=== PATIENT | female | born 1960 | race Hispanic/Latino ===

== ENCOUNTER 2018-04-16 10:33 | Outpatient (CLI) | payer OTHER ==
--- NOTE | 2018-04-16 13:28 | ULT ---
PELVIC ULTRASOUND INCLUDING TRANSABDOMINAL AND TRANSVAGINAL AND VASCULAR DUPLEX WITH COLOR AND SPECTR AL DOPPLER IMAGING: Date: 04/16/18 HISTORY: 58-year-old female with history of pelvic pain, with concern for the possibility of an ovarian lesion . FINDINGS: The uterus measures 8.7 x 3.8 x 3.6 cm. Endometrium is 0.5 cm. Right ovary measures 1.5 x 2.1 x 2.3 cm, and contains a 1.4 x 1.6 cm small cyst. Left ovary measures 3.1 x 1.8 x 2.7 cm, and contains an approximately 0.9 x 1.4 x 2.8 cm cyst. No evidence for intrauterine mass. No solid extrauterine mass. No abscess or abnormal fluid collectio n. Vascular flow documented to both ovaries. No evidence for ovarian torsion. IMPRESSION: Small bilateral ovarian cysts. No other significant abnormality. POS: [facility]
== END 2018-04-16 10:34 | disposition home or self-care (01) ==
LOC: BICULT 10:33
PROVIDERS: ATTEND Internal Medicine
DX: N83.9 Noninflammatory disorder of ovary, fallopian tube and broad ligament, unspecified (principal); N83.202 Unspecified ovarian cyst, left side; N83.201 Unspecified ovarian cyst, right side
CPT/HCPCS: 76856

== ENCOUNTER 2018-05-06 23:36 | Emergency (ER) | payer OTHER ==
--- NOTE | 2018-05-07 07:50 | RAD ---
TWO VIEWS OF THE CHEST: COMPARISON: 02/25/2016. HISTORY: Cough. FINDINGS: Two views of the chest show normal sized cardiomediastinal silhouette. There is no evidence of consol idation, mass, or pleural effusion. Degenerative changes are seen in the spine. IMPRESSION: No evidence of acute cardiopulmonary disease. POS: [facility]
== END 2018-05-07 00:58 | disposition home or self-care (01) ==
LOC: ERS 23:36
DX: J40 Bronchitis, not specified as acute or chronic (principal); J45.909 Unspecified asthma, uncomplicated; B19.20 Unspecified viral hepatitis C without hepatic coma; I10 Essential (primary) hypertension; E78.00 Pure hypercholesterolemia, unspecified; F41.9 Anxiety disorder, unspecified; F32.9 Major depressive disorder, single episode, unspecified; Z79.899 Other long term (current) drug therapy
CPT/HCPCS: 71046; 93005; 94640; J7620

== ENCOUNTER 2018-11-17 12:36 | Emergency (ER) | payer SELFPAY ==
[2018-11-17] MEDS ORDERED: Ondansetron ODT 4 MG TAB ONE (13:24)
[2018-11-17 13:36] LABS: #Lymphocytes 1.2 thou/uL (1.20-3.40); #Monocytes 0.4 thou/uL (0.11-0.59); #Neutrophils 8.2 thou/uL (1.40-6.50); %Basophils 0.2 % (0.0-1.0); %Eosinophils 0.3 % (0.0-10.0); %Lymphocytes 11.7 % (21.0-51.0); %Monocytes 4.2 % (0.0-10.0); %Neutrophils 83.6 % (42.0-75.0); Hemoglobin 15.5 g/dL (12.0-16.0); Mean Corpuscular HGB CONC 34.4 g/dL (32.0-36.0); Mean Corpuscular Hemoglobin 31.6 pg (27.0-31.0); Mean Corpuscular Volume 91.9 fL (78.0-98.0); Mean Platelet Volume 8.5 fL (7.4-10.4); Platelet Count 238 thou/uL (130-400); RBC Distribution Width 11.5 % (11.5-14.5); White Blood Cell (WBC) Count 9.8 thou/uL (4.8-10.8)
[2018-11-17 14:07] LABS: ALT (SGPT) 14 U/L (8-55); AST (SGOT) 26 U/L (5-34); Albumin 4.2 g/dL (3.5-5.0); Alkaline Phosphatase 184 U/L (40-150); Anion Gap 13 mmol/L (10-20); BUN (Urea Nitrogen) 13 mg/dL (9.8-20.1); Calc. Creatinine Clearance 0 mL/min (70-130); Calcium 9.3 mg/dL (7.8-10.44); Carbon Dioxide 27 mmol/L (22-29); Chloride 102 mmol/L (98-107); Estimated GFR-MDRD 88; Globulin 2.8 g/dL (2.4-3.5); Glucose 115 mg/dL (70-105); Lipase 6 U/L (8-78); Potassium 3.9 mmol/L (3.5-5.1); Sodium 138 mmol/L (136-145)
[2018-11-17 14:53] LABS: Bilirubin Small (Negative); Blood, Urine Moderate (Negative); Clarity CLOUDY (Clear); Glucose, Urine (Dipstick) Negative (Negative); Leukocyte Moderate (Negative); Nitrite Negative (Negative); Protein, Urine (Dipstick) 30 mg/dL (Neg-Trace); Specific Gravity, Urine 1.028 (1.002-1.036)
[2018-11-17 14:55] LABS: Pathc Cast-AUWi Flag 0.13 (0-2.49)
[2018-11-17 14:59] LABS: Bacteria/HPF 1+ HPF (None Seen); Squamous Epithelial 0-3 HPF (0-3)
[2018-11-17 15:00] LABS: Hyaline Casts/LPF NONE SEEN LPF (0-3 Hyaline)
[2018-11-17] MEDS ORDERED: Acetaminophen 500 MG TAB ONE (16:18)
== END 2018-11-17 16:42 | disposition home or self-care (01) ==
LOC: ERS 12:36
DX: R11.2 Nausea with vomiting, unspecified (principal); R10.10 Upper abdominal pain, unspecified; R19.7 Diarrhea, unspecified; N39.0 Urinary tract infection, site not specified; E11.9 Type 2 diabetes mellitus without complications; J45.909 Unspecified asthma, uncomplicated; E78.00 Pure hypercholesterolemia, unspecified; I10 Essential (primary) hypertension; F41.9 Anxiety disorder, unspecified; F32.9 Major depressive disorder, single episode, unspecified; Z79.899 Other long term (current) drug therapy; Z79.84 Long term (current) use of oral hypoglycemic drugs
CPT/HCPCS: 36415; 36416; 80053; 81003; 81015; 83690; 84484; 85025; 96360; Q0162

== ENCOUNTER 2018-12-10 18:00 | Emergency (ER) | payer SELFPAY ==
[2018-12-10 18:32] LABS: #Basophils 0.1 thou/uL (0.0-0.2); #Eosinphils 0.1 thou/uL (0.0-0.7); #Lymphocytes 3.3 thou/uL (1.20-3.40); #Monocytes 0.6 thou/uL (0.11-0.59); #Neutrophils 5.5 thou/uL (1.40-6.50); %Basophils 0.9 % (0.0-1.0); %Eosinophils 0.9 % (0.0-10.0); %Lymphocytes 34.6 % (21.0-51.0); %Monocytes 6.3 % (0.0-10.0); %Neutrophils 57.3 % (42.0-75.0); Hemoglobin 14.3 g/dL (12.0-16.0); Mean Corpuscular HGB CONC 34.7 g/dL (32.0-36.0); Mean Platelet Volume 7.9 fL (7.4-10.4); Platelet Count 242 thou/uL (130-400); RBC Distribution Width 11.4 % (11.5-14.5); Red Blood Cell (RBC) Count 4.47 mill/uL (4.20-5.40); White Blood Cell (WBC) Count 9.6 thou/uL (4.8-10.8)
[2018-12-10] MEDS ORDERED: Metoclopramide HCl 10 MG/2 ML VIAL ONE (18:48)
[2018-12-10] MEDS ORDERED: diphenhydrAMINE 50 MG/ML VIAL ONE (18:48)
[2018-12-10] MEDS ORDERED: Fentanyl 100 MCG/2 ML VIAL ONE (18:48)
--- NOTE | 2018-12-10 18:51 | RAD ---
RADIOGRAPH CHEST 1 VIEW: DATE: 12/10/2018 HISTORY: 58-year-old female with dyspnea FINDINGS: There are no airspace densities, pulmonary edema, pneumothorax, or cardiomegaly. The lateral costophr enic angles are sharp. IMPRESSION: No acute cardiopulmonary findings.
[2018-12-10 19:00] LABS: ALT (SGPT) 16 U/L (8-55); AST (SGOT) 28 U/L (5-34); Albumin 4.1 g/dL (3.5-5.0); Alkaline Phosphatase 183 U/L (40-150); Anion Gap 13 mmol/L (10-20); BUN (Urea Nitrogen) 11 mg/dL (9.8-20.1); Bilirubin, Total 0.5 mg/dL (0.2-1.2); CK (CPK) 32 U/L (29-168); Calc. Creatinine Clearance 0 mL/min (70-130); Calcium 9.7 mg/dL (7.8-10.44); Carbon Dioxide 29 mmol/L (22-29); Chloride 101 mmol/L (98-107); Estimated GFR-MDRD 88; Glucose 106 mg/dL (70-105); Lipase 18 U/L (8-78); Protein, Total 7.1 g/dL (6.0-8.3); Sodium 139 mmol/L (136-145)
[2018-12-10 19:41] LABS: Bilirubin Negative (Negative); Blood, Urine Negative (Negative); Clarity Clear (Clear); Glucose, Urine (Dipstick) Normal (Negative); Leukocyte Negative Leu/uL (Negative); Nitrite Negative (Negative); Protein, Urine (Dipstick) Negative (Neg-Trace); Urobilinogen 3 mg/dL (Less than 2)
--- NOTE | 2018-12-10 19:57 | CT ---
CT ABDOMEN WITH CONTRAST CT PELVIS WITH CONTRAST: DATE: 12/10/2018 HISTORY: 58-year-old female with generalized abdominal pain, most severe in the right upper quadrant with naus ea and subjective fever. COMPARISON: 02/16/2015. TECHNIQUE: IV injection of iodinated contrast media: Administered Oral contrast media:Not administered. FINDINGS: Liver: No focal solid mass. Spleen: No splenomegaly.. Pancreas: No mass or surrounding fat stranding.. Adrenals: No mass.. Kidneys: No hydronephrosis or enhancement abnormalities.. Large 9.5 x 7.5 x 7.5 cm right renal cyst e xophytically protruding inferiorly from lower pole has increased in size. Ureters: No dilation. Bladder: No pathology identified. Abdominal aorta: No aneurysm. Small bowel: No dilation. Colon: No adjacent fat stranding. Appendix: No dilation or adjacent fat stranding.. Free air: None. Free fluid: None. Fat containing paraumbilical hernia has increased in size. IMPRESSION: 1. No major pathology identified.. 2. Large right renal cyst. 3. Fat-containing paraumbilical hernia.
== END 2018-12-10 20:23 | disposition home or self-care (01) ==
LOC: ERS 18:00
DX: E11.43 Type 2 diabetes mellitus with diabetic autonomic (poly)neuropathy (principal); K31.84 Gastroparesis; N28.1 Cyst of kidney, acquired; F32.9 Major depressive disorder, single episode, unspecified; F41.9 Anxiety disorder, unspecified; E78.5 Hyperlipidemia, unspecified; J44.9 Chronic obstructive pulmonary disease, unspecified; I10 Essential (primary) hypertension; Z86.19 Personal history of other infectious and parasitic diseases; Z79.84 Long term (current) use of oral hypoglycemic drugs; Z79.899 Other long term (current) drug therapy
CPT/HCPCS: 36415; 71045; 74177; 80053; 81003; 82550; 83690; 84484; 85025; 96365; 96375; J1200; J2765; J3010

== ENCOUNTER 2019-02-17 20:14 | Emergency (ER) | payer SELFPAY ==
[2019-02-17] MEDS ORDERED: Albuterol Sulfate 2.5 mg/3 ml Neb ONE (20:32)
[2019-02-17] MEDS ORDERED: predniSONE 20 MG TAB ONE (20:52)
== END 2019-02-17 21:17 | disposition home or self-care (01) ==
LOC: ERS 20:14
DX: J45.901 Unspecified asthma with (acute) exacerbation (principal); E11.9 Type 2 diabetes mellitus without complications; I10 Essential (primary) hypertension; E78.00 Pure hypercholesterolemia, unspecified; F41.9 Anxiety disorder, unspecified; F32.9 Major depressive disorder, single episode, unspecified; Z79.899 Other long term (current) drug therapy
CPT/HCPCS: 94640; J7512; J7611; J7620

== ENCOUNTER 2019-06-28 22:01 | Observation (INO) | payer SELFPAY ==
[2019-06-28 22:34] LABS: #Basophils 0.1 thou/uL (0.0-0.2); #Eosinphils 0.1 thou/uL (0.0-0.7); #Lymphocytes 4.5 thou/uL (1.20-3.40); #Monocytes 0.7 thou/uL (0.11-0.59); #Neutrophils 6.3 thou/uL (1.40-6.50); %Basophils 0.9 % (0.0-1.0); %Eosinophils 0.6 % (0.0-10.0); %Lymphocytes 38.7 % (21.0-51.0); %Monocytes 5.7 % (0.0-10.0); %Neutrophils 54.1 % (42.0-75.0); Hemoglobin 15.7 g/dL (12.0-16.0); Mean Corpuscular HGB CONC 34.5 g/dL (32.0-36.0); Mean Corpuscular Hemoglobin 31.1 pg (27.0-31.0); Mean Corpuscular Volume 90.1 fL (78.0-98.0); Mean Platelet Volume 8.7 fL (7.4-10.4); Platelet Count 222 thou/uL (130-400); RBC Distribution Width 11.4 % (11.5-14.5); Red Blood Cell (RBC) Count 5.04 mill/uL (4.20-5.40); White Blood Cell (WBC) Count 11.6 thou/uL (4.8-10.8)
[2019-06-28 22:43] LABS: ALT (SGPT) 9 U/L (8-55); AST (SGOT) 18 U/L (5-34); Albumin 4.1 g/dL (3.4-4.8); Alkaline Phosphatase 198 U/L (40-110); Anion Gap 14 mmol/L (10-20); BUN (Urea Nitrogen) 11 mg/dL (9.8-20.1); Bilirubin, Total 0.3 mg/dL (0.2-1.2); CK (CPK) 39 U/L (29-168); Calc. Creatinine Clearance 0 mL/min (70-130); Calcium 9.4 mg/dL (7.8-10.44); Carbon Dioxide 24 mmol/L (23-31); Chloride 105 mmol/L (98-107); Estimated GFR-MDRD 82; Globulin 3.9 g/dL (2.4-3.5); Glucose 119 mg/dL (80-115); Sodium 139 mmol/L (136-145)
--- NOTE | 2019-06-28 23:20 | RAD ---
Exam: Chest one view HISTORY:Chest pain. Palpitations. Comparison: 12/10/2018 FINDINGS: Cardiac silhouette: Normal Aorta: Unremarkable Pulmonary vessels: Normal Costophrenic angles: Clear LUNGS: No masses or consolidation. Pneumothorax: None Osseous abnormalities: None IMPRESSION: No acute cardiopulmonary process.
[2019-06-29] MEDS ORDERED: Acetaminophen 650 MG Suppository PR PRN (00:50)
[2019-06-29] MEDS ORDERED: HumaLOG 300 UNITS/3 ML VIAL SC PRN ×2 (00:55)
[2019-06-29] MEDS ORDERED: Dextrose 50% Abboject 50 ML SYRINGE SLOW IVP PRN (00:55)
[2019-06-29] MEDS ORDERED: Dextrose 5% in Water 1,000 ML IV PRN (00:55)
[2019-06-29 01:52] VITALS: BMI 40.9
--- NOTE | 2019-06-29 02:36 | HP ---
This is GIORGIO Dover dictating a report for Ronaldo Hughes MD. CHIEF COMPLAINT: Intermittent palpitations. HISTORY OF PRESENT ILLNESS: Ms. Hillman is a very pleasant 59-year-old woman with a known history of diabetes mellitus, COPD, hypertension, and hyperlipidemia, also known to have a history of arrhythmia in the past, who presents today with recurring episodes of palpitations. The patient states for the last several weeks, she has noted occasional episodes of palpitations lasting a few seconds and resolving on its own. Today since 6:00 p.m., the patient states it has remained intermittent, again lasting a few seconds at a time, but feeling as if it takes away her breath. She denies any associated chest pain. Reports mild nausea after taking aspirin at home. Denies any recent fevers, chills, or sweats. Denies any cough or hemoptysis. Has felt well in herself in recent days. The patient does report noting lower extremity swelling and more prominent in recent days. Denies any recent flights or long car rides. ED COURSE: In the emergency department, she had an EKG done that showed normal sinus rhythm with heart rate of 77. Her heart rate, however, in the 80 has gone as high as 140s for a very brief period. She has had blood pressure elevated at 215/122 on initial presentation, but it has improved to 156/78. She had laboratory studies done showing a mildly elevated white count of 11.6, hemoglobin 15.7, hematocrit 45.4, platelets . Sodium 139, potassium 4.0, BUN 11, creatinine 0.72, GFR 82, glucose 119, calcium 9.4. LFTs unremarkable. Alkaline phosphatase 198. Troponin 0.021. CK 39. Albumin 4.1. IMAGING DATA: Chest x-ray imaging showed no acute cardiopulmonary process. PAST MEDICAL HISTORY: 1. Type 2 diabetes mellitus. 2. COPD. 3. Hepatitis C. 4. Umbilical hernia. 5. Renal cyst. 6. Hypertension. 7. Hyperlipidemia. 8. Anxiety. 9. Depression. PAST SURGICAL HISTORY: 1. Tubal ligation. 2. Gallbladder. 3. Appendectomy. 4. Ovarian cyst removal. SOCIAL HISTORY: The patient reports drinking alcohol rarely. Denies any history of tobacco use. No drug use. She lives at home with her family. She does report drinking excess caffeine including three cups of coffee daily and 420-ounce bottles of Dr Pepper or Coke daily. PHYSICAL EXAMINATION: GENERAL: The patient appears well developed, well nourished, is in no acute distress. She is sitting comfortably on the stretcher. VITAL SIGNS: Blood pressure 156/78, pulse 70, respirations 18, temp 98.2, sats 97% on room air. While obtaining history, the patient's heart rate did intermittently increase to the 140s range for a few seconds. HEENT: Normocephalic and atraumatic. Pupils are equal, round, and reactive to light. Sclerae icterus. Oropharynx is clear. NECK: Supple. LUNGS: Clear to auscultation bilaterally without wheezes, rales, or rhonchi. CARDIAC: Regular rate and rhythm without audible murmurs, rubs, or gallops. ABDOMEN: Soft, nontender, and nondistended. Obese. No guarding or rigidity. EXTREMITIES: No calf tenderness. No obvious lower extremity swelling. No edema. NEUROLOGIC: Alert and oriented x3. SKIN: Warm and dry. INVESTIGATIONS: As mentioned above in the HPI. IMPRESSION AND PLAN: Ms. Hillman is a pleasant 59-year-old woman, who is being admitted for management of the following. 1. Nonsustained supraventricular tachycardia. The patient with brief shortness of breath when the episode starts. Otherwise, denies any chest pain or difficulty breathing. Her heart rate is within normal range. She has noted lower extremity swelling, but otherwise no other associated symptoms. We will obtain a D-dimer. We will check TSH and continue to trend troponins. The patient will remain on continuous cardiac monitoring. Consultation placed to Cardiology as per discussion with Dr. Hughes. We will check magnesium as well. White count slightly elevated, but no clear signs or symptoms of infection. We will obtain urinalysis and urine culture. Chest x-ray unremarkable. 2. Diabetes mellitus. Resume home medications. Monitor blood glucose and initiate sliding scale. 3. Hypertension. Resume home medications and monitor blood pressure. 4. Anxiety. Resume home medications once verified. 5. Chronic obstructive pulmonary disease. Resume home medications once verified. DuoNeb p.r.n. 6. Gastrointestinal prophylaxis with famotidine. 7. Code status is full. Surrogate decision maker is her , Solo Rafy. The patient's case discussed with attending, who agrees upon care as described above. Job ID: [id number]
[2019-06-29 04:24] LABS: #Eosinphils 0.1 thou/uL (0.0-0.7); #Lymphocytes 3.7 thou/uL (1.20-3.40); #Monocytes 0.5 thou/uL (0.11-0.59); #Neutrophils 5.3 thou/uL (1.40-6.50); %Basophils 0.4 % (0.0-1.0); %Eosinophils 0.8 % (0.0-10.0); %Lymphocytes 38.4 % (21.0-51.0); %Neutrophils 55.3 % (42.0-75.0); Hemoglobin 14.3 g/dL (12.0-16.0); Mean Corpuscular HGB CONC 34.6 g/dL (32.0-36.0); Mean Corpuscular Hemoglobin 31.7 pg (27.0-31.0); Mean Corpuscular Volume 91.5 fL (78.0-98.0); Mean Platelet Volume 8.5 fL (7.4-10.4); Platelet Count 215 thou/uL (130-400); RBC Distribution Width 11.5 % (11.5-14.5); Red Blood Cell (RBC) Count 4.51 mill/uL (4.20-5.40); White Blood Cell (WBC) Count 9.6 thou/uL (4.8-10.8)
[2019-06-29 04:45] LABS: Anion Gap 12 mmol/L (10-20); BUN (Urea Nitrogen) 10 mg/dL (9.8-20.1); Calc. Creatinine Clearance 139 mL/min (70-130); Calcium 8.7 mg/dL (7.8-10.44); Carbon Dioxide 25 mmol/L (23-31); Chloride 107 mmol/L (98-107); Estimated GFR-MDRD 88; Glucose 119 mg/dL (80-115); Potassium 4.4 mmol/L (3.5-5.1); Sodium 140 mmol/L (136-145)
--- NOTE | 2019-06-29 08:01 | CT ---
PRELIMINARY REPORT/[facility]/EMERGENCY AFTER HOURS PROCEDURE: EXAM: CTA Chest with Intravenous Contrast CLINICAL HISTORY: F59, TACHY, ELEVATED D-DIMER. EVAL FOR PE. TECHNIQUE: Axial CTA images of the chest with intravenous contrast. MIP reconstructed images were created and re viewed. CONTRAST: With; 100ML ISOVUE 370 COMPARISON: None provided. FINDINGS: PULMONARY ARTERIES There is no intraluminal filling defect suspicious for PE. AORTA No thoracic aortic aneurysm or dissection. LUNGS The lungs are clear. No pulmonary mass. No focal airspace consolidation. PLEURAL SPACES No pleural effusion. No pneumothorax. HEART AND MEDIASTINUM No cardiomegaly. No significant pericardial effusion. LYMPH NODES No lymphadenopathy. BONES No focal osseous abnormality or acute fracture. Multilevel degenerative changes of the spine. CHEST WALL AND UPPER ABDOMEN Images through the upper abdomen are unremarkable. Status post cholecystectomy. The chest wall is u nremarkable. IMPRESSION: Unremarkable CTA of the chest. ELECTRONICALLY SIGNED BY: Félix Gonzales M.D. Jun 29, 2019 2:45:01 AM RIB CLOTH KNITTER This report is intended for review by the ordering physician only, in accordance of law. If you recei ve this report in error, please call [facility] at [phone]. FINAL REPORT EMERGENT AFTER HOURS CT ANGIOGRAM THORAX WITH IV CONTRAST AND 3D RECONSTRUCTIONS: HISTORY: Tachycardia and positive D-dimer. COMPARISON: 04/22/2013. IMPRESSION: 1. No CT evidence of a pulmonary embolus. 2. Thoracic aorta is normal in caliber without evidence of an aortic dissection. 3. Degenerative change in the spine with calcification anterior longitudinal ligament. 4. Findings are in agreement with the preliminary report by [facility]. POS: [facility]
--- NOTE | 2019-06-29 08:03 | ULT ---
PRELIMINARY REPORT/[facility]/EMERGENCY AFTER HOURS PROCEDURE: EXAM: US Duplex bilateral Lower Extremity Veins. CLINICAL HISTORY: BLE pain/edema Negative for BLE DVT TECHNIQUE: Real-time ultrasound scan of the veins of the bilateral lower extremity with color Doppler flow, spec tral waveform analysis and compression. COMPARISON: None provided. FINDINGS: DEEP VEINS: The common femoral, femoral, and popliteal veins are echolucent and compressible. These v essels demonstrate respiratory variation and augmentation. There is normal color Doppler flow through out. The visualized calf veins are also patent. SUPERFICIAL VEINS: The visualized greater saphenous vein is patent. SOFT TISSUES: No popliteal fossa cyst or other abnormalities. IMPRESSION: No deep venous thrombosis in the bilateral lower extremity. ELECTRONICALLY SIGNED BY: Donis Adhikari MD Jun 29, 2019 3:03:52 AM LOG BRANDER This report is intended for review by the ordering physician only, in accordance of law. If you recei ve this report in error, please call [facility] at [phone]. FINAL REPORT VENOUS DUPLEX SONOGRAM BILATERAL LOWER EXTREMITY: HISTORY: Bilateral leg pain and edema. FINDINGS: Agree with the preliminary report by Dr. Adhikari from [facility]. Normal exam. Good color and s pectral Doppler flow. POS: [facility]
[2019-06-29] MEDS: Famotidine 20 MG TAB PO SCH ×2 (08:36→20:05)
[2019-06-29] MEDS ORDERED: FLU VACC QS2019-20(6MOS UP)/PF 60 MCG/0.5 ML SYRINGE IM ONE (09:00)
[2019-06-29 09:08] LABS: Bilirubin Negative (Negative); Blood, Urine 1+ (Negative); Clarity Clear (Clear); Glucose, Urine (Dipstick) Normal (Negative); Leukocyte 75 Leu/uL (Negative); Nitrite Negative (Negative); Protein, Urine (Dipstick) 20 mg/dL (Neg-Trace); Squamous Epithelial 0-3 HPF (0-3); Urobilinogen Normal mg/dL (Less than 2)
[2019-06-29 09:09] LABS: Bacteria/HPF 1+ HPF (None Seen)
[2019-06-29 09:11] LABS: Urine Culture Reflex Yes Yes
[2019-06-29] MEDS ORDERED: Lisinopril 20 MG TAB PO SCH (09:15)
[2019-06-29] MEDS ORDERED: Hydrochlorothiazide 25 MG TAB PO SCH (09:15)
[2019-06-29] MEDS ORDERED: Iopamidol 370 76% 100 ML VIAL ONE (15:07)
[2019-06-29] MEDS: Acetaminophen 325 MG TAB PO PRN ×2 (15:29→20:05)
--- NOTE | 2019-06-29 16:56 | PDOC.HOSPP ---
- Subjective Encounter Date: 06/29/19 Encounter Time: 16:50 Subjective: f/u for palpitation and intermittent tachycardia not currently on any rate control agent. - Objective Vital Signs & Weight: Vital Signs (12 hours) Temp Pulse Resp BP BP Pulse Ox 06/29/19 11:23 97.8 F 65 16 138/65 98 06/29/19 07:42 97.5 F L 62 16 181/83 H 96 Weight Weight 224 lb I&O: 06/28/19 06/29/19 06/30/19 06:59 06:59 06:59 Output Total 200 Balance -200 Result Diagrams: 06/29/19 04:00 06/29/19 04:00 Additional Labs: Accuchecks 06/29/19 06/29/19 10:55 05:31 POC Glucose 157 H 124 H Laboratory Tests 06/28/19 06/28/19 06/29/19 22:09 22:09 01:01 WBC 11.6 H Troponin I 0.021 B-Natriuretic Peptide Less than 10.0 TSH 3rd Generation 06/29/19 06/29/19 06/29/19 01:01 01:01 04:00 WBC Troponin I 0.017 0.012 B-Natriuretic Peptide TSH 3rd Generation 2.3844 Radiology Reviewed by me: Yes (CTA chest - neg; LE dopplers - neg) EKG Reviewed by me: Yes (Tele - SR) Hospitalist ROS - Medication Medications: Active Medications Generic Name Dose Route Start Last Admin Trade Name Freq PRN Reason Stop Dose Admin Acetaminophen 650 mg 06/29/19 00:50 06/29/19 15:29 Tylenol PO 650 mg Q4H PRN Administration Headache/Fever/Mild Pain (1-3) Famotidine 20 mg 06/29/19 09:00 06/29/19 08:36 Pepcid PO 20 mg BID COLE Administration - Exam General Appearance: NAD, awake alert Eye: PERRL, anicteric sclera ENT: normocephalic atraumatic, no oropharyngeal lesions Neck: supple, symmetric, no JVD, no thyromegaly Heart: RRR, no gallops, no rubs, normal peripheral pulses Respiratory: CTAB, no wheezes, no rales, no ronchi, normal chest expansion, no tachypnea Gastrointestinal: soft, non-tender, non-distended, normal bowel sounds, no palpable masses Extremities: no cyanosis, no clubbing, no edema Skin: normal turgor, no lesions Neurological: cranial nerve grossly intact, no new deficit Musculoskeletal: normal tone, normal strength Psychiatric: normal affect, A&O x 3 Hosp A/P (1) Arrhythmia Code(s): I49.9 - CARDIAC ARRHYTHMIA, UNSPECIFIED Status: Acute Plan: ? type, may benefit from event monitor, consider B-spenser trial, Echo pending (2) Dyspnea Code(s): R06.00 - DYSPNEA, UNSPECIFIED Status: Acute Plan: Intermittent, check 2D echo, no pulmonary edema (3) Diabetes mellitus type II, uncontrolled Code(s): E11.65 - TYPE 2 DIABETES MELLITUS WITH HYPERGLYCEMIA Status: Chronic Plan: Confirm home regimen, dietary measures (4) Hypertension, benign Code(s): I10 - ESSENTIAL (PRIMARY) HYPERTENSION Status: Chronic Plan: Trial Metoprolol 12.5mg BID - Plan out of bed/ambulate, DVT proph w/SCDs Stable currently Consider Event monitor for outpt if sx return Trial Metroprolol 12.5mg BID OOB and ambulate 2D echo pending Likely home in 24h
[2019-06-29] MEDS: Metoprolol Tartrate 25 MG TAB PO SCH (20:04)
[2019-06-30] MEDS: Famotidine 20 MG TAB PO SCH (08:49)
[2019-06-30] MEDS: Metoprolol Tartrate 25 MG TAB PO SCH (08:49)
[2019-06-30 09:00] VITALS: BP 135/72
[2019-06-30] MEDS ORDERED: Lisinopril 20 MG TAB PO SCH (09:00)
[2019-06-30] MEDS ORDERED: Hydrochlorothiazide 25 MG TAB PO SCH (09:00)
[2019-06-30 09:15] VITALS: TEMP 98.3
[2019-06-30 10:08] LABS: Cardiac Risk 4.5 (Less than 4.5)
--- NOTE | 2019-06-30 10:51 | CON ---
DATE OF CONSULTATION: HISTORY: Jd Hillman is a 59-year-old female who was admitted with palpitations. I evaluated her in the office in January 2016 when she was seen for pleuritic chest pain at rest or with exertion that would last 1 to 2 minutes. Echocardiogram revealed ejection fraction of 55% to 60% with mild mitral tricuspid and pulmonic regurgitation. She also underwent Lexiscan Cardiolite testing, which was normal. Since her 30s, she states that she has had episodes of palpitations, although they have been much worse over the last several weeks. She will feel her heart beating very rapidly and it may last up to 5 to 10 minutes. She denies any chest discomfort, may feel somewhat short of breath with this. She denies any history of syncope. When she arrived, her blood pressure was 215/122, and she was in sinus rhythm. Since being on telemetry, she has had episodes of supraventricular tachycardia with rates of approximately 150 per minute. She has been started on low-dose metoprolol and has not had any recurrence since that time. PAST MEDICAL HISTORY: Diabetes, COPD, hepatitis C, umbilical hernia, hypertension, hyperlipidemia (she was on pravastatin 20 at bedtime with good control of her cholesterol, but has lost her insurance and does not have any prescriptions to have that filled), anxiety and depression. OPERATIONS: Tubal ligation, cholecystectomy, appendectomy, ovarian cyst removal. MEDICATIONS: Lisinopril/hydrochlorothiazide 20/12.5 q.a.m. ALLERGIES: NONE. SOCIAL HISTORY: She rarely drinks. She does not smoke. She denied caffeine use to me, but to the admitting physician stated that she would drink 3 cups of coffee a day and 42-ounce bottles of Dr Pepper or Coke daily. REVIEW OF SYSTEMS: A 12-point review of systems is otherwise unremarkable. PHYSICAL EXAMINATION: VITAL SIGNS: Blood pressure 113/58, pulse of 59. HEENT: PERRL. NECK: Supple. CHEST: Clear. CARDIAC: S1 and S2 normal without any S3, S4, or murmurs. ABDOMEN: Obese. Normal bowel sounds. No tenderness or organomegaly. EXTREMITIES: Revealed no clubbing, cyanosis, or edema. NEUROLOGIC: Grossly intact. SKIN: Warm and dry. LABORATORY DATA: EKG revealed normal sinus rhythm with nonspecific ST changes. Cardiac enzymes are unremarkable. Hemoglobin 14.3, hematocrit 41.3, white count 9600, platelets 215,000. D-dimer 2.07. Glucose is up to 157. Sodium 140, potassium 4.4, chloride 107, carbon dioxide 25, BUN 10, and creatinine 0.68. IMPRESSION: 1. Supraventricular tachycardia, probably with onset in her 30s. 2. High caffeine intake. 3. Hypertension, poorly controlled at times. 4. Hypercholesterolemia, on no medications. 5. Diabetes. 6. History of asthma. 7. Obesity. 8. Hepatitis C. PLAN: Since institution of therapy with low-dose metoprolol, she has not had any recurrence of her SVT. We did discuss the benign nature of her arrhythmia. From her blood pressure presentation, she needed to be on additional medications and if beta-spenser will control her arrhythmia, then that is probably all we need to do at the present time. However, she continues to have breakthrough episodes, a consideration can be given to radiofrequency ablation. I feel that she can be discharged and would also start her on pravastatin 20 at bedtime, which she was taking in the past for her hypercholesterolemia. Fasting lipid profile has been ordered. Again, we discussed vagal maneuvers to try to terminate the arrhythmias, she does have recurrence. Job ID: [id number]
--- NOTE | 2019-06-30 12:38 | DIS ---
DATE OF ADMISSION: 06/28/2019 DATE OF DISCHARGE: 06/30/2019 DISCHARGE DIAGNOSES: 1. Arrhythmia, nonspecific. 2. Dyspnea secondary to #1. 3. Diabetes mellitus type 2, poorly controlled. 4. Hypertension, stable. CONSULTATIONS: Dr. Jack Ferreira with Cardiology Service. PERTINENT LABORATORY AND X-RAY FINDINGS: Basic metabolic profile within normal limits. Magnesium level 2.2. Troponin-I negative x3. BNP less than 10. TSH 2.38. Total cholesterol 159, triglycerides 165, HDL 35, LDL 91. CBC showed a white blood cell count ranged between 9.6 to 11.6. Urine culture dated on 06/29/2019 showed young culture with further incubation required. Portable chest x-ray dated on 06/28/2019 showed no acute cardiopulmonary process. CT angiogram of the chest dated on 06/29/2019 showed no evidence for pulmonary embolus. 2D transthoracic echocardiogram dated on 06/29/2019 showed ejection fraction of 50% to 55%. Diastolic dysfunction noted. Mild mitral and tricuspid valve regurgitation. HOSPITAL COURSE: The patient was initially observed on the telemetry unit after presenting with palpitations. The patient underwent general metabolic screening showing essentially negative findings. TSH and magnesium levels were normal. Troponin-I negative x3. Telemetry monitoring showed no acute arrhythmia or dysrhythmia and the patient was given a trial of metoprolol 12.5 mg b.i.d. 2D transthoracic echocardiogram was performed showing preserved ejection fraction without focal wall motion abnormalities. Cardiology consult recommendations included continuation of a beta-spenser therapy and followup on an outpatient basis. The patient was also noted with poorly-controlled diabetes mellitus type 2 with recommendations for outpatient followup and management by her primary care provider. Overall, the patient remained clinically stable with stable vital signs at the time of discharge. I have examined the patient at the time of discharge and discussed followup instructions. The patient verbalizes understanding and agreement, ready for discharge on 06/30/2019. DISCHARGE MEDICATIONS: 1. Lisinopril/hydrochlorothiazide 20/12.5 mg 1 tablet p.o. daily. 2. Lopressor 12.5 mg p.o. b.i.d. 3. Zocor 10 mg p.o. at bedtime. FOLLOWUP: The patient may follow up with her primary care provider, Dr. Vandana Nguyen. The patient will follow up with Dr. Mj Ferreira and to call his office for appointment time and date. CONDITION ON DISCHARGE: Stable. ACTIVITY: Ad-britni. DIET: Heart healthy and ADA. CODE STATUS: Full. DISPOSITION: Home on 06/30/2019. Job ID: [id number]
[2019-06-30] MEDS ORDERED: Pravastatin Sodium 20 MG TAB PO SCH (21:00)
[2019-06-30] MEDS ORDERED: Simvastatin 5 MG TAB PO SCH (21:00)
== END 2019-06-30 12:52 | disposition home or self-care (01) ==
LOC: ERS 22:01 → 2NO 23:58
PROVIDERS: ADMIT Internal Medicine; ATTEND Internal Medicine
DX: I47.1 Supraventricular tachycardia (principal); E11.9 Type 2 diabetes mellitus without complications; I10 Essential (primary) hypertension; E66.9 Obesity, unspecified; E78.00 Pure hypercholesterolemia, unspecified; B19.20 Unspecified viral hepatitis C without hepatic coma; J44.9 Chronic obstructive pulmonary disease, unspecified; E78.5 Hyperlipidemia, unspecified; Z79.899 Other long term (current) drug therapy; F41.9 Anxiety disorder, unspecified; F32.9 Major depressive disorder, single episode, unspecified; Z68.41 Body mass index [BMI] 40.0-44.9, adult
CPT/HCPCS: 36415; 36416; 71045; 71275; 80048; 80053; 80061; 81001; 82550; 83735; 83880; 84443; 84484; 85025; 85379; 87086; 90471; 90686; 90732; 93005; 93306; 93970; 94760; G0008; G0009; G0378; Q9967

== ENCOUNTER 2019-07-08 14:38 | Emergency (ER) | payer OTHER, SELFPAY ==
--- NOTE | 2019-07-08 16:02 | RAD ---
TWO VIEWS OF THE CHEST: 07/08/19 COMPARISON: 05/07/18. HISTORY: Cough and shortness of breath. FINDINGS: There is mild diffuse increased linear interstitial density, stable when compared to prior imaging. S table heart and mediastinal contours. Stable degenerative change involving the thoracic spine and mayte ateral acromioclavicular joints. IMPRESSION: Stable appearance of the chest - no acute findings. POS: [facility]
[2019-07-08] MEDS ORDERED: Dexamethasone 10 MG/ML VIAL ONE (16:41)
[2019-07-08 19:18] LABS: #Eosinphils 0.1 thou/uL (0.0-0.7); #Lymphocytes 1.2 thou/uL (1.20-3.40); #Monocytes 0.4 thou/uL (0.11-0.59); %Basophils 0.1 % (0.0-1.0); %Eosinophils 0.7 % (0.0-10.0); %Lymphocytes 10.7 % (21.0-51.0); %Neutrophils 84.5 % (42.0-75.0); Hemoglobin 14.2 g/dL (12.0-16.0); Mean Corpuscular HGB CONC 33.9 g/dL (32.0-36.0); Mean Corpuscular Volume 91.6 fL (78.0-98.0); Mean Platelet Volume 8.7 fL (7.4-10.4); Platelet Count 202 thou/uL (130-400); RBC Distribution Width 11.6 % (11.5-14.5); Red Blood Cell (RBC) Count 4.57 mill/uL (4.20-5.40); White Blood Cell (WBC) Count 10.7 thou/uL (4.8-10.8)
[2019-07-08 19:31] LABS: ALT (SGPT) 25 U/L (8-55); AST (SGOT) 59 U/L (5-34); Albumin 3.9 g/dL (3.4-4.8); Alkaline Phosphatase 181 U/L (40-110); Anion Gap 12 mmol/L (10-20); BUN (Urea Nitrogen) 8 mg/dL (9.8-20.1); Bilirubin, Total 0.6 mg/dL (0.2-1.2); CK (CPK) 35 U/L (29-168); Calc. Creatinine Clearance 0 mL/min (70-130); Calcium 8.9 mg/dL (7.8-10.44); Carbon Dioxide 23 mmol/L (23-31); Chloride 104 mmol/L (98-107); Estimated GFR-MDRD 77; Globulin 3.5 g/dL (2.4-3.5); Glucose 182 mg/dL (80-115); Protein, Total 7.4 g/dL (6.0-8.3); Sodium 135 mmol/L (136-145)
[2019-07-08] MEDS ORDERED: Acetaminophen 500 MG TAB ONE (20:56)
== END 2019-07-08 21:51 | disposition home or self-care (01) ==
LOC: ERS 14:38
DX: J45.901 Unspecified asthma with (acute) exacerbation (principal); E11.9 Type 2 diabetes mellitus without complications; I10 Essential (primary) hypertension; E78.00 Pure hypercholesterolemia, unspecified; F41.9 Anxiety disorder, unspecified; F32.9 Major depressive disorder, single episode, unspecified; J44.9 Chronic obstructive pulmonary disease, unspecified
CPT/HCPCS: 36415; 71046; 80053; 82550; 83880; 84484; 85025; 87804; 93005; 94640; J1100; J7620

== ENCOUNTER 2019-07-17 22:10 | Emergency (ER) | payer SELFPAY ==
[2019-07-17 22:47] LABS: Bilirubin Negative (Negative); Blood, Urine Negative (Negative); Clarity Clear (Clear); Glucose, Urine (Dipstick) Greater than 1000 mg/dL (Negative); Leukocyte Negative Leu/uL (Negative); Nitrite Negative (Negative); Protein, Urine (Dipstick) Negative (Neg-Trace); Urobilinogen Normal mg/dL (Less than 2)
[2019-07-17] MEDS ORDERED: Fluconazole 100 MG TAB PO SCH (23:15)
[2019-07-18 22:08] LABS: Chlamydia by PCR Not Detected (NotDetected); GC by PCR Not Detected (NotDetected)
== END 2019-07-17 23:11 | disposition home or self-care (01) ==
LOC: ERS 22:10
DX: N89.8 Other specified noninflammatory disorders of vagina (principal); E11.9 Type 2 diabetes mellitus without complications; I10 Essential (primary) hypertension; J44.9 Chronic obstructive pulmonary disease, unspecified; E78.00 Pure hypercholesterolemia, unspecified; F41.9 Anxiety disorder, unspecified; F32.9 Major depressive disorder, single episode, unspecified; Z79.51 Long term (current) use of inhaled steroids; Z79.84 Long term (current) use of oral hypoglycemic drugs; Z79.899 Other long term (current) drug therapy
CPT/HCPCS: 81003; 87480; 87491; 87510; 87591; 87660; 99283

== ENCOUNTER 2019-08-01 00:44 | Emergency (ER) | payer OTHER, SELFPAY ==
[2019-08-01 02:10] LABS: Bacteria/HPF None Seen HPF (None Seen); Bilirubin Negative (Negative); Blood, Urine Trace (Negative); Clarity Clear (Clear); Glucose, Urine (Dipstick) Greater than 1000 mg/dL (Negative); Leukocyte 75 Leu/uL (Negative); Nitrite Negative (Negative); Protein, Urine (Dipstick) Negative (Neg-Trace); Squamous Epithelial 0-3 HPF (0-3); Urobilinogen Normal mg/dL (Less than 2)
[2019-08-01 03:03] LABS: #Eosinphils 0.1 thou/uL (0.0-0.7); #Lymphocytes 3.7 thou/uL (1.20-3.40); #Monocytes 0.6 thou/uL (0.11-0.59); #Neutrophils 5.7 thou/uL (1.40-6.50); %Basophils 0.2 % (0.0-1.0); %Lymphocytes 36.3 % (21.0-51.0); %Monocytes 6.2 % (0.0-10.0); %Neutrophils 56.2 % (42.0-75.0); Hemoglobin 14.4 g/dL (12.0-16.0); Mean Corpuscular HGB CONC 35.9 g/dL (32.0-36.0); Mean Corpuscular Volume 89.2 fL (78.0-98.0); Mean Platelet Volume 8.8 fL (7.4-10.4); Platelet Count 214 thou/uL (130-400); RBC Distribution Width 11.4 % (11.5-14.5)
[2019-08-01 03:24] LABS: ALT (SGPT) 15 U/L (8-55); AST (SGOT) 16 U/L (5-34); Albumin 3.8 g/dL (3.4-4.8); Alkaline Phosphatase 291 U/L (40-110); Anion Gap 14 mmol/L (10-20); BUN (Urea Nitrogen) 12 mg/dL (9.8-20.1); Bilirubin, Total 0.4 mg/dL (0.2-1.2); Calc. Creatinine Clearance 0 mL/min (70-130); Calcium 9.2 mg/dL (7.8-10.44); Carbon Dioxide 23 mmol/L (23-31); Chloride 101 mmol/L (98-107); Estimated GFR-MDRD 69; Globulin 3.5 g/dL (2.4-3.5); Glucose 437 mg/dL (80-115); Potassium 4.1 mmol/L (3.5-5.1); Protein, Total 7.3 g/dL (6.0-8.3); Sodium 134 mmol/L (136-145)
== END 2019-08-01 03:52 | disposition home or self-care (01) ==
LOC: ERS 00:44
DX: E11.65 Type 2 diabetes mellitus with hyperglycemia (principal); B37.3 Candidiasis of vulva and vagina; N39.0 Urinary tract infection, site not specified; I10 Essential (primary) hypertension; E78.00 Pure hypercholesterolemia, unspecified; J44.9 Chronic obstructive pulmonary disease, unspecified; F41.9 Anxiety disorder, unspecified; F32.9 Major depressive disorder, single episode, unspecified; Z87.01 Personal history of pneumonia (recurrent); Z79.84 Long term (current) use of oral hypoglycemic drugs; Z79.899 Other long term (current) drug therapy
CPT/HCPCS: 36415; 36416; 80053; 81003; 81015; 85025; 87086; 99283

== ENCOUNTER 2019-10-16 08:32 | Emergency (ER) | payer OTHER ==
[2019-10-16 09:20] LABS: #Basophils 0.1 thou/uL (0.0-0.2); #Lymphocytes 1.7 thou/uL (1.20-3.40); #Monocytes 0.5 thou/uL (0.11-0.59); %Basophils 0.4 % (0.0-1.0); %Eosinophils 0.1 % (0.0-10.0); %Lymphocytes 12.9 % (21.0-51.0); %Monocytes 3.7 % (0.0-10.0); %Neutrophils 82.9 % (42.0-75.0); Hemoglobin 15.6 g/dL (12.0-16.0); Mean Corpuscular HGB CONC 33.9 g/dL (32.0-36.0); Mean Corpuscular Hemoglobin 31.7 pg (27.0-31.0); Mean Corpuscular Volume 93.5 fL (78.0-98.0); Mean Platelet Volume 8.9 fL (7.4-10.4); Platelet Count 249 thou/uL (130-400); RBC Distribution Width 11.8 % (11.5-14.5); Red Blood Cell (RBC) Count 4.93 mill/uL (4.20-5.40); White Blood Cell (WBC) Count 13.3 thou/uL (4.8-10.8)
[2019-10-16] MEDS ORDERED: Pantoprazole 40 MG VIAL ONE (09:23)
[2019-10-16] MEDS ORDERED: Ondansetron PF 4 MG/2 ML Vial ONE ×2 (09:23→09:59)
[2019-10-16 09:36] LABS: ALT (SGPT) 9 U/L (8-55); AST (SGOT) 18 U/L (5-34); Alkaline Phosphatase 155 U/L (40-110); Anion Gap 14 mmol/L (10-20); BUN (Urea Nitrogen) 9 mg/dL (9.8-20.1); Calc. Creatinine Clearance 0 mL/min (70-130); Calcium 9.4 mg/dL (7.8-10.44); Carbon Dioxide 26 mmol/L (23-31); Chloride 103 mmol/L (98-107); Estimated GFR-MDRD Greater than 90; Globulin 3.2 g/dL (2.4-3.5); Glucose 159 mg/dL (80-115); Lipase 9 U/L (8-78); Protein, Total 7.2 g/dL (6.0-8.3); Sodium 139 mmol/L (136-145)
== END 2019-10-16 10:13 | disposition home or self-care (01) ==
LOC: ERS 08:32
DX: R10.13 Epigastric pain (principal); E11.9 Type 2 diabetes mellitus without complications; J44.9 Chronic obstructive pulmonary disease, unspecified; E78.00 Pure hypercholesterolemia, unspecified; F41.9 Anxiety disorder, unspecified; I10 Essential (primary) hypertension; F32.9 Major depressive disorder, single episode, unspecified; Z79.84 Long term (current) use of oral hypoglycemic drugs; Z79.899 Other long term (current) drug therapy
CPT/HCPCS: 80053; 83690; 84484; 85025; 93005; 96372; 96374; 96375; C9113; J0500; J2405

== ENCOUNTER 2019-11-18 20:02 | Emergency (ER) | payer OTHER, SELFPAY ==
[~2019-11-18 20:02] MED LIST: Iopamidol 370 76% 100 ML VIAL ONE
[2019-11-18 21:09] LABS: Bilirubin Negative (Negative); Blood, Urine Trace (Negative); Clarity Clear (Clear); Glucose, Urine (Dipstick) Normal (Negative); Leukocyte 25 Leu/uL (Negative); Mucous/LPF Rare LPF (<2+); Nitrite Negative (Negative); Protein, Urine (Dipstick) 10 mg/dL (Neg-Trace); RBC/HPF 0-3 HPF (0-3); Renal Epithelial 0-3 HPF (None Seen); WBC/HPF 0-3 HPF (0-3)
[2019-11-18 21:12] LABS: #Lymphocytes 1.5 thou/uL (1.20-3.40); #Monocytes 0.6 thou/uL (0.11-0.59); %Lymphocytes 10.2 % (21.0-51.0); %Monocytes 3.6 % (0.0-10.0); %Neutrophils 86.1 % (42.0-75.0); Hemoglobin 16.8 g/dL (12.0-16.0); Mean Corpuscular HGB CONC 34.5 g/dL (32.0-36.0); Mean Corpuscular Hemoglobin 31.7 pg (27.0-31.0); Mean Corpuscular Volume 91.8 fL (78.0-98.0); Mean Platelet Volume 8.6 fL (7.4-10.4); Platelet Count 294 thou/uL (130-400); RBC Distribution Width 11.6 % (11.5-14.5); Red Blood Cell (RBC) Count 5.29 mill/uL (4.20-5.40); White Blood Cell (WBC) Count 15.1 thou/uL (4.8-10.8)
[2019-11-18 21:16] LABS: Bacteria/HPF 2+ HPF (None Seen)
[2019-11-18 21:31] LABS: ALT (SGPT) 8 U/L (8-55); AST (SGOT) 16 U/L (5-34); Albumin 4.2 g/dL (3.4-4.8); Alkaline Phosphatase 158 U/L (40-110); Anion Gap 13 mmol/L (10-20); BUN (Urea Nitrogen) 14 mg/dL (9.8-20.1); Bilirubin, Total 0.8 mg/dL (0.2-1.2); Calc. Creatinine Clearance 0 mL/min (70-130); Calcium 9.9 mg/dL (7.8-10.44); Carbon Dioxide 26 mmol/L (23-31); Chloride 103 mmol/L (98-107); Estimated GFR-MDRD 77; Globulin 3.6 g/dL (2.4-3.5); Glucose 179 mg/dL (80-115); Lipase 7 U/L (8-78); Potassium 3.8 mmol/L (3.5-5.1); Protein, Total 7.8 g/dL (6.0-8.3); Sodium 138 mmol/L (136-145)
[2019-11-18] MEDS ORDERED: Ondansetron PF 4 MG/2 ML Vial ONE (23:21)
--- NOTE | 2019-11-18 23:50 | CT ---
CT Abdomen Pelvis W Con HISTORY: Left upper quadrant abdominal pain and diarrhea COMPARISON: 12/10/2018 FINDINGS: The lung bases are clear. The patient is post cholecystectomy and appendectomy. The liver, spleen, pa ncreas, adrenal glands and left kidney appear normal. There is 8.8 x 8 x 8.5 cm exophytic cyst arising from the right kidney which is also seen on the previous exam No free air or lymphadenopathy seen in the abdomen or pelvis. There is a small amount of free fluid i n the pelvis. Uterus and ovaries are present. The small bowel loops are not abnormally dilated. There is wall thickening thickening of a portion of the small bowel. The fat containing right paraumb ilical abdominal wall hernia is again noted. There are degenerative changes in the spine. There is no evidence of aneurysmal dilatation of the abdominal aorta. IMPRESSION: 1. Large right renal cyst 2. Small amount of free fluid in the pelvis 3. Wall Thickening of a portion of the small bowel. This is a nonspecific finding and may be due to i nfection, inflammation, infiltrative or neoplastic disorders.
[2019-11-18] MEDS ORDERED: Ondansetron PF 4 MG/2 ML Vial IVP PRN (23:51)
[2019-11-18] MEDS ORDERED: Sodium Chloride 0.9% 1,000 ML IV SCH (23:51)
[2019-11-18] MEDS ORDERED: Ondansetron ODT 4 MG TAB SL PRN (23:51)
[2019-11-19] MEDS ORDERED: Aspirin Chewable 81 MG TAB PO SCH (09:00)
== END 2019-11-19 00:26 | disposition home or self-care (01) ==
LOC: ERS 20:02
DX: K52.9 Noninfective gastroenteritis and colitis, unspecified (principal); E11.9 Type 2 diabetes mellitus without complications; I10 Essential (primary) hypertension; E78.00 Pure hypercholesterolemia, unspecified; F41.9 Anxiety disorder, unspecified; F32.9 Major depressive disorder, single episode, unspecified; J44.9 Chronic obstructive pulmonary disease, unspecified; Z87.01 Personal history of pneumonia (recurrent); Z79.899 Other long term (current) drug therapy; Z79.84 Long term (current) use of oral hypoglycemic drugs
CPT/HCPCS: 36415; 74177; 80053; 81003; 81015; 83690; 85025; 96374; J2405; Q9967

== ENCOUNTER 2019-12-27 20:03 | Emergency (ER) | payer SELFPAY ==
[~2019-12-27 20:03] MED LIST changes: -Iopamidol 370 76% 100 ML VIAL ONE; +Iopamidol-370 76% 500 ML 1 ML ONE
[2019-12-27 21:02] LABS: #Lymphocytes 1.7 thou/uL (1.20-3.40); #Monocytes 0.7 thou/uL (0.11-0.59); #Neutrophils 13.2 thou/uL (1.40-6.50); %Basophils 0.2 % (0.0-1.0); %Eosinophils 0.1 % (0.0-10.0); %Lymphocytes 10.7 % (21.0-51.0); %Monocytes 4.3 % (0.0-10.0); %Neutrophils 84.6 % (42.0-75.0); Hemoglobin 16.5 g/dL (12.0-16.0); Mean Corpuscular HGB CONC 33.1 g/dL (32.0-36.0); Mean Corpuscular Hemoglobin 30.4 pg (27.0-31.0); Mean Corpuscular Volume 91.8 fL (78.0-98.0); Mean Platelet Volume 8.4 fL (7.4-10.4); Platelet Count 262 thou/uL (130-400); RBC Distribution Width 11.4 % (11.5-14.5); Red Blood Cell (RBC) Count 5.43 mill/uL (4.20-5.40); White Blood Cell (WBC) Count 15.7 thou/uL (4.8-10.8)
[2019-12-27 21:18] LABS: ALT (SGPT) 7 U/L (8-55); AST (SGOT) 18 U/L (5-34); Albumin 4.2 g/dL (3.4-4.8); Alkaline Phosphatase 163 U/L (40-110); Anion Gap 13 mmol/L (10-20); BUN (Urea Nitrogen) 12 mg/dL (9.8-20.1); Bilirubin, Total 0.8 mg/dL (0.2-1.2); Calc. Creatinine Clearance 0 mL/min (70-130); Calcium 9.6 mg/dL (7.8-10.44); Carbon Dioxide 26 mmol/L (23-31); Chloride 104 mmol/L (98-107); Estimated GFR-MDRD 75; Globulin 3.5 g/dL (2.4-3.5); Glucose 159 mg/dL (80-115); Lipase 12 U/L (8-78); Potassium 4.1 mmol/L (3.5-5.1); Protein, Total 7.7 g/dL (6.0-8.3); Sodium 139 mmol/L (136-145)
--- NOTE | 2019-12-27 22:26 | CT ---
CT ABDOMEN AND PELVIS WITH IV CONTRAST 12/27/2019 CLINICAL INFORMATION: Patient with hepatitis C presenting for abdominal pain. COMPARISON: 11/18/2019 Technique: Multiple contiguous axial CT images are obtained through the abdomen and pelvis with IV contrast. Cor onal reformatted images are provided. FINDINGS: Lower Chest: Lung bases are clear. Vessels: Abdominal aorta is normal in caliber without evidence of an aortic dissection. Abdomen: Portal vein:Patent Gallbladder: Surgically absent. Liver: within normal limits. Spleen: within normal limits. Pancreas: within normal limits. Adrenals: within normal limits. Kidneys: A large inferior pole right renal cyst is again seen. This cyst measures 8.5 cm transverse x 8 cm AP with previous measurements of 8 cm AP x8.8 cm transverse. Left kidney has a normal CT appearance. Bowel: There is bowel wall thickening involving a long segment of a loop of small bowel within the lo wer abdomen and extending into the pelvis with adjacent mild inflammatory stranding/mesenteric edema. This finding was also present on the prior exam and not significantly changed. This is again n onspecific and could be related to infectious or inflammatory enteritis. Inflammatory bowel disease is a possibility. Appendix: Not definitely visualized, but there are no CT findings to suggest appendicitis. Peritoneum: Small amount of intraperitoneal free fluid is seen in the pelvis. Mesentery and Retroperitoneum: No enlarged mesenteric or retroperitoneal lymph nodes. Abdominal Wall: Fat-containing ventral abdominal wall hernia is again seen. Pelvis: Reproductive Organs: No pelvic masses. Pelvis within normal limits. Bladder: Incompletely distended but otherwise normal in appearance. Bones: Degenerative changes in the spine. IMPRESSION: 1. Persistent wall thickening involving long segment loop of small bowel with adjacent mesenteric artem ma/inflammatory changes. This is again a nonspecific finding and could be related to infectious process or inflammatory in etiology. 2. Small amount of ascites in the pelvis which was also present on the prior exam. 3. Right renal cyst.
[2019-12-27] MEDS ORDERED: Ondansetron PF 4 MG/2 ML Vial ONE (22:37)
[2019-12-27 22:49] LABS: Bacteria/HPF None Seen HPF (None Seen); Bilirubin Negative (Negative); Blood, Urine Trace (Negative); Clarity Clear (Clear); Glucose, Urine (Dipstick) Normal (Negative); Ketone, Urine Negative (Negative); Leukocyte 25 Leu/uL (Negative); Nitrite Negative (Negative); Protein, Urine (Dipstick) Negative (Neg-Trace); RBC/HPF 0-3 HPF (0-3); Squamous Epithelial 0-3 HPF (0-3); WBC/HPF 0-3 HPF (0-3)
[2019-12-27 22:51] LABS: Specific Gravity, Urine 1.059 (1.002-1.036)
== END 2019-12-27 23:02 | disposition home or self-care (01) ==
LOC: ERS 20:03
DX: B19.20 Unspecified viral hepatitis C without hepatic coma (principal); K42.0 Umbilical hernia with obstruction, without gangrene; E11.9 Type 2 diabetes mellitus without complications; J45.909 Unspecified asthma, uncomplicated; E78.00 Pure hypercholesterolemia, unspecified; J44.9 Chronic obstructive pulmonary disease, unspecified; I10 Essential (primary) hypertension; F41.9 Anxiety disorder, unspecified; F32.9 Major depressive disorder, single episode, unspecified; Z79.899 Other long term (current) drug therapy; Z79.84 Long term (current) use of oral hypoglycemic drugs
CPT/HCPCS: 74177; 80053; 81003; 81015; 83690; 85025; 96374; J2405; Q9967

== ENCOUNTER 2020-07-03 13:22 | Emergency (ER) | payer SELFPAY ==
[2020-07-03] MEDS ORDERED: Ondansetron ODT 4 MG TAB ONE (14:19)
[2020-07-03 14:21] LABS: #Basophils 0.1 thou/uL (0.0-0.2); #Lymphocytes 1.6 thou/uL (1.20-3.40); #Monocytes 0.4 thou/uL (0.11-0.59); #Neutrophils 12.4 thou/uL (1.40-6.50); %Basophils 0.4 % (0.0-1.0); %Eosinophils 0.2 % (0.0-10.0); %Lymphocytes 11.1 % (21.0-51.0); %Monocytes 2.9 % (0.0-10.0); %Neutrophils 85.5 % (42.0-75.0); Hemoglobin 16.3 g/dL (12.0-16.0); Mean Corpuscular HGB CONC 33.2 g/dL (32.0-36.0); Mean Corpuscular Hemoglobin 30.3 pg (27.0-31.0); Mean Corpuscular Volume 91.2 fL (78.0-98.0); Mean Platelet Volume 8.3 fL (7.4-10.4); Platelet Count 241 thou/uL (130-400); RBC Distribution Width 11.7 % (11.5-14.5); Red Blood Cell (RBC) Count 5.37 mill/uL (4.20-5.40); White Blood Cell (WBC) Count 14.5 thou/uL (4.8-10.8)
[2020-07-03 14:40] LABS: ALT (SGPT) Less than 7 U/L (8-55); AST (SGOT) 16 U/L (5-34); Albumin 3.9 g/dL (3.4-4.8); Alkaline Phosphatase 170 U/L (40-110); Anion Gap 14 mmol/L (10-20); BUN (Urea Nitrogen) 14 mg/dL (9.8-20.1); Bilirubin, Total 0.8 mg/dL (0.2-1.2); Calc. Creatinine Clearance 0 mL/min (70-130); Calcium 9.1 mg/dL (7.8-10.44); Carbon Dioxide 24 mmol/L (23-31); Chloride 103 mmol/L (98-107); Globulin 3.4 g/dL (2.4-3.5); Glucose 144 mg/dL (80-115); Lipase 10 U/L (8-78); Protein, Total 7.3 g/dL (5.8-8.1); Sodium 137 mmol/L (136-145)
[2020-07-03 14:56] LABS: Bilirubin Negative (Negative); Blood, Urine Trace (Negative); Clarity Clear (Clear); Glucose, Urine (Dipstick) Normal (Negative); Ketone, Urine Negative (Negative); Leukocyte 75 Leu/uL (Negative); Nitrite Negative (Negative); Protein, Urine (Dipstick) 20 mg/dL (Neg-Trace); RBC/HPF 0-3 HPF (0-3); Specific Gravity, Urine 1.028 (1.002-1.036); Urobilinogen 3 mg/dL (Less than 2); pH, Urine 6.5 (5.0-9.0)
[2020-07-03 14:59] LABS: Bacteria/HPF 1+ HPF (None Seen)
== END 2020-07-03 17:59 | disposition left against medical advice (07) ==
LOC: ERS 13:22
DX: Z53.21 Procedure and treatment not carried out due to patient leaving prior to being seen by health care provider (principal)
CPT/HCPCS: 36415; 80053; 81003; 81015; 83690; 85025; Q0162

== ENCOUNTER 2020-08-04 08:29 | Outpatient (CLI) | payer MEDICARE ==
--- NOTE | 2020-08-04 08:58 | MMO ---
Bilateral MAMMO Bilat Diag [facility]. CLINICAL HISTORY: Patient is 60 years old and is seen for diagnostic exam and pain in both breasts. The patient has the following family history of breast cancer: paternal aunt. The patient has no personal history of cancer. VIEWS: The views performed were: bilateral craniocaudal with tomosynthesis; bilateral mediolateral oblique with tomosynthesis; and bilateral mediolateral with tomosynthesis. FILMS COMPARED: The present examination has been compared to prior imaging studies performed at 11/22/2010 and 04/21/2017. This study has been interpreted with the assistance of computer-aided detection. MAMMOGRAM FINDINGS: The breasts are almost entirely fat. There are no suspicious masses, suspicious calcifications, or new areas of architectural distortion. IMPRESSION: THERE IS NO MAMMOGRAPHIC EVIDENCE OF MALIGNANCY. A ROUTINE FOLLOW-UP MAMMOGRAM IN 1 YEAR IS RECOMMENDED. THE RESULTS OF THIS EXAM WERE SENT TO THE PATIENT. ACR BI-RADS Category 1 - Negative MAMMOGRAPHY NOTE: 1. A negative mammogram report should not delay a biopsy if a dominant of clinically suspicious mass is present. 2. Approximately 10% to 15% of breast cancers are not detected by mammography. 3. Adenosis and dense breasts may obscure an underlying neoplasm. Reported by: BAYRON MOORE MD Electonically Signed: [id number]
== END 2020-08-04 08:30 | disposition home or self-care (01) ==
LOC: BICMAMMO 08:29
PROVIDERS: ATTEND Internal Medicine
DX: N63.20 Unspecified lump in the left breast, unspecified quadrant (principal); N64.4 Mastodynia
CPT/HCPCS: 77066; G0279

== ENCOUNTER 2020-08-08 10:56 | Outpatient (CLI) | payer MEDICARE ==
[2020-08-08 13:06] LABS: #Eosinphils 0.1 10x3/uL (0.0-0.5); #Monocytes 0.5 10x3/uL (0.0-1.1); #Neutrophils 5.3 10x3/uL (1.5-8.4); %Basophils 0.2 % (0.0-2.0); %Eosinophils 0.6 % (0.0-6.0); %Lymphocytes 33.1 % (18.0-47.0); %Monocytes 5.5 % (0.0-10.0); %Neutrophils 60.4 % (40.0-75.0); Hemoglobin 14.8 g/dL (12.0-15.5); Mean Corpuscular HGB CONC 33.4 g/dL (32.0-36.0); Mean Corpuscular Hemoglobin 30.3 pg (27.0-33.0); Mean Corpuscular Volume 90.6 fl (81.6-98.3); Mean Platelet Volume 11.5 fl (7.4-10.4); Platelet Count 266 10x3/uL (150-450); RBC Distribution Width 12.2 % (11.5-14.5); Red Blood Cell (RBC) Count 4.89 10x6/uL (3.90-5.03); White Blood Cell (WBC) Count 8.7 10x3/uL (3.5-10.5)
[2020-08-08 13:23] LABS: ALT (SGPT) 7 U/L (8-55); AST (SGOT) 17 U/L (5-34); Alkaline Phosphatase 172 U/L (40-110); Anion Gap 10 mmol/L (10-20); BUN (Urea Nitrogen) 13 mg/dL (9.8-20.1); Bilirubin, Total 0.9 mg/dL (0.2-1.2); Calc. Creatinine Clearance 0 mL/min (70-130); Calcium 9.5 mg/dL (7.8-10.44); Carbon Dioxide 31 mmol/L (23-31); Chloride 102 mmol/L (98-107); Glucose 138 mg/dL (80-115); Potassium 4.2 mmol/L (3.5-5.1); Sodium 139 mmol/L (136-145)
[2020-08-09 03:09] LABS: SARS-CoV-2 PCR by NAA Not Detected (NotDetected)
== END 2020-08-08 10:57 | disposition home or self-care (01) ==
LOC: LABBT 10:56
PROVIDERS: ATTEND Surgery
DX: Z01.818 Encounter for other preprocedural examination (principal); K42.9 Umbilical hernia without obstruction or gangrene; Z20.822 Contact with and (suspected) exposure to COVID-19
CPT/HCPCS: 80053; 85025; 93005; U0003; U0005; 87635; 93010

== ENCOUNTER 2020-08-11 05:54 | Day surgery (SDC) | payer MEDICARE ==
[2020-08-10 09:09] VITALS: BMI 40.2
[2020-08-11] MEDS ORDERED: XYLOCAINE 2%-EPI 1:100,000 20 ML VIAL ONE (06:40)
[2020-08-11] MEDS ORDERED: Bupivacaine PF 0.5% 30 ML VIAL ONE (06:40)
[2020-08-11] MEDS ORDERED: Fentanyl 100 MCG/2 ML VIAL ONE ×2 (06:56→09:28)
[2020-08-11] MEDS ORDERED: SUGAMMADEX SODIUM 200 MG/2 ML VIAL ONE (06:56)
[2020-08-11] MEDS ORDERED: Albuterol Sulfate HFA (OR ONLY) ONE (08:20)
[2020-08-11] MEDS ORDERED: Metoprolol Tartrate 5 MG/5 ML VIAL ONE (09:21)
[2020-08-11] MEDS ORDERED: EPINEPHrine 1 MG/10 ML Abboject SYRINGE ONE (09:21)
[2020-08-11] MEDS ORDERED: Lidocaine 1% PF 5 ML VIAL ONE (09:21)
[2020-08-11] MEDS ORDERED: Ondansetron PF 4 MG/2 ML Vial ONE (09:21)
[2020-08-11] MEDS ORDERED: PROPOFOL 200 MG/20 ML VIAL ONE (09:21)
[2020-08-11] MEDS ORDERED: Rocuronium Bromide 10 MG/ML (10ML VIAL) ONE (09:21)
[2020-08-11] MEDS ORDERED: Ketorolac Tromethamine 30 MG/ML VIAL ONE (09:21)
[2020-08-11] MEDS ORDERED: Ondansetron ODT 4 MG TAB ONE (11:00)
== END 2020-08-11 11:20 | disposition home or self-care (01) ==
LOC: SDC 05:54
PROVIDERS: ATTEND Surgery
PROC: 0WUF0JZ Supplement Abdominal Wall with Synthetic Substitute, Open Approach (ICD-10-PCS; principal; 2020-08-11)
DX: K43.2 Incisional hernia without obstruction or gangrene (principal); I10 Essential (primary) hypertension; E78.5 Hyperlipidemia, unspecified; J45.909 Unspecified asthma, uncomplicated; G89.29 Other chronic pain; M54.5 Low back pain; K21.9 Gastro-esophageal reflux disease without esophagitis; Z86.16 Personal history of COVID-19; Z79.82 Long term (current) use of aspirin; Z79.84 Long term (current) use of oral hypoglycemic drugs; Z79.899 Other long term (current) drug therapy
CPT/HCPCS: 49560; 49568; C1781; J0171; J0690; J1885; J2405; J2704; J3010; J7620; Q0162; S0020

== ENCOUNTER 2021-02-26 08:25 | Outpatient (CLI) | payer MEDICARE | END 2021-02-26 08:26 | disposition home or self-care (01) | LOC: BICULT 08:25 | PROVIDERS: ATTEND Internal Medicine | DX: R10.13 Epigastric pain (principal) | CPT/HCPCS: 76700 ==

== ENCOUNTER 2021-03-21 07:53 | Outpatient (CLI) | payer MEDICARE ==
[2021-03-21 08:12] LABS: Estimated GFR-MDRD - POC Greater than 90
== END 2021-03-21 07:54 | disposition home or self-care (01) ==
LOC: BICCT 07:53
PROVIDERS: ATTEND Internal Medicine
DX: N28.89 Other specified disorders of kidney and ureter (principal); N28.1 Cyst of kidney, acquired
CPT/HCPCS: 74170; 82565

== ENCOUNTER 2021-04-25 14:05 | Emergency (ER) | payer MEDICARE ==
[2021-04-25] MEDS ORDERED: Dexamethasone 10 MG/ML VIAL ONE (14:37)
== END 2021-04-25 15:27 | disposition home or self-care (01) ==
LOC: ERS 14:05
DX: J45.901 Unspecified asthma with (acute) exacerbation (principal); Z79.899 Other long term (current) drug therapy
CPT/HCPCS: 71045; J1100; J7620

== ENCOUNTER 2021-06-14 17:45 | Emergency (ER) | payer MEDICARE ==
[2021-06-14 18:29] LABS: #Lymphocytes 1.4 thou/uL (1.20-3.40); #Monocytes 0.6 thou/uL (0.11-0.59); #Neutrophils 4.8 thou/uL (1.40-6.50); %Basophils 0.6 % (0.0-1.0); %Eosinophils 0.4 % (0.0-10.0); %Lymphocytes 20.4 % (21.0-51.0); %Monocytes 8.9 % (0.0-10.0); %Neutrophils 69.7 % (42.0-75.0); Hemoglobin 15.6 g/dL (12.0-16.0); Mean Corpuscular HGB CONC 35.8 g/dL (32.0-36.0); Mean Corpuscular Hemoglobin 32.6 pg (27.0-31.0); Mean Corpuscular Volume 91.2 fL (78.0-98.0); Mean Platelet Volume 8.5 fL (7.4-10.4); Platelet Count 180 thou/uL (130-400); RBC Distribution Width 11.6 % (11.5-14.5); Red Blood Cell (RBC) Count 4.78 mill/uL (4.20-5.40); White Blood Cell (WBC) Count 6.9 thou/uL (4.8-10.8)
[2021-06-14 19:05] LABS: ALT (SGPT) 16 U/L (8-55); AST (SGOT) 45 U/L (5-34); Albumin 3.8 g/dL (3.4-4.8); Alkaline Phosphatase 237 U/L (40-110); Anion Gap 14 mmol/L (10-20); BUN (Urea Nitrogen) 7 mg/dL (9.8-20.1); Bilirubin, Total 1.1 mg/dL (0.2-1.2); Calc. Creatinine Clearance 0 mL/min (70-130); Calcium 9.6 mg/dL (7.8-10.44); Carbon Dioxide 23 mmol/L (23-31); Chloride 104 mmol/L (98-107); Globulin 3.5 g/dL (2.4-3.5); Glucose 215 mg/dL (80-115); Potassium 3.7 mmol/L (3.5-5.1); Protein, Total 7.3 g/dL (5.8-8.1); Sodium 137 mmol/L (136-145)
[2021-06-15 13:33] LABS: SARS-CoV-2 PCR by NAA DETECTED (NotDetected)
== END 2021-06-14 20:44 | disposition home or self-care (01) ==
LOC: ERS 17:45
DX: U07.1 COVID-19 (principal); J45.901 Unspecified asthma with (acute) exacerbation; I48.91 Unspecified atrial fibrillation; E11.9 Type 2 diabetes mellitus without complications; I10 Essential (primary) hypertension; E78.00 Pure hypercholesterolemia, unspecified; Z79.899 Other long term (current) drug therapy
CPT/HCPCS: 71045; 80053; 85025; 99285; U0003; U0005; 36415

== ENCOUNTER 2021-06-21 14:51 | Emergency (ER) | payer MEDICARE ==
[2021-06-21 16:44] LABS: #Monocytes 0.5 thou/uL (0.11-0.59); #Neutrophils 6.3 thou/uL (1.40-6.50); %Basophils 0.2 % (0.0-1.0); %Eosinophils 0.3 % (0.0-10.0); %Lymphocytes 36.8 % (21.0-51.0); %Monocytes 4.4 % (0.0-10.0); %Neutrophils 58.4 % (42.0-75.0); Hemoglobin 15.1 g/dL (12.0-16.0); Mean Corpuscular HGB CONC 34.6 g/dL (32.0-36.0); Mean Corpuscular Hemoglobin 31.7 pg (27.0-31.0); Mean Corpuscular Volume 91.7 fL (78.0-98.0); Mean Platelet Volume 8.8 fL (7.4-10.4); Platelet Count 187 thou/uL (130-400); RBC Distribution Width 11.4 % (11.5-14.5); Red Blood Cell (RBC) Count 4.75 mill/uL (4.20-5.40); White Blood Cell (WBC) Count 10.7 thou/uL (4.8-10.8)
[2021-06-21 17:02] LABS: ALT (SGPT) 11 U/L (8-55); AST (SGOT) 20 U/L (5-34); Albumin 3.6 g/dL (3.4-4.8); Alkaline Phosphatase 264 U/L (40-110); Anion Gap 17 mmol/L (10-20); BUN (Urea Nitrogen) 14 mg/dL (9.8-20.1); Bilirubin, Total 0.5 mg/dL (0.2-1.2); Calc. Creatinine Clearance 0 mL/min (70-130); Calcium 9.2 mg/dL (7.8-10.44); Carbon Dioxide 20 mmol/L (23-31); Chloride 100 mmol/L (98-107); Globulin 3.9 g/dL (2.4-3.5); Glucose 536 mg/dL (80-115); Potassium 3.9 mmol/L (3.5-5.1); Protein, Total 7.5 g/dL (5.8-8.1); Sodium 133 mmol/L (136-145)
[2021-06-21] MEDS ORDERED: Insulin Regular 300 UNITS/3 ML VIAL ONE (17:32)
[2021-06-21] MEDS ORDERED: Potassium Chloride 20 MEQ/100 ML PREMIX BAG ONE (17:32)
[2021-06-21 19:35] LABS: Anion Gap 14 mmol/L (10-20); BUN (Urea Nitrogen) 14 mg/dL (9.8-20.1); Calc. Creatinine Clearance 0 mL/min (70-130); Calcium 8.7 mg/dL (7.8-10.44); Carbon Dioxide 22 mmol/L (23-31); Chloride 104 mmol/L (98-107); Glucose 381 mg/dL (80-115); Potassium 3.6 mmol/L (3.5-5.1); Sodium 136 mmol/L (136-145)
== END 2021-06-21 20:43 | disposition home or self-care (01) ==
LOC: ERS 14:51
DX: E11.65 Type 2 diabetes mellitus with hyperglycemia (principal); I10 Essential (primary) hypertension; E11.9 Type 2 diabetes mellitus without complications; E78.00 Pure hypercholesterolemia, unspecified; J44.9 Chronic obstructive pulmonary disease, unspecified; Z79.899 Other long term (current) drug therapy; I48.91 Unspecified atrial fibrillation
CPT/HCPCS: 36415; 36416; 71045; 80053; 82010; 85025; 99285; J1815; J3480

== ENCOUNTER 2021-08-06 07:21 | Outpatient (CLI) | payer MEDICARE ==
[2021-08-06 08:15] LABS: Estimated GFR-MDRD - POC Greater than 90
== END 2021-08-06 07:22 | disposition home or self-care (01) ==
LOC: CT 07:21
PROVIDERS: ATTEND Physician Assistant Medical
DX: R10.13 Epigastric pain (principal); R11.2 Nausea with vomiting, unspecified; R74.8 Abnormal levels of other serum enzymes; K76.0 Fatty (change of) liver, not elsewhere classified; N28.1 Cyst of kidney, acquired; K57.90 Diverticulosis of intestine, part unspecified, without perforation or abscess without bleeding; K43.2 Incisional hernia without obstruction or gangrene; M48.05 Spinal stenosis, thoracolumbar region; M47.819 Spondylosis without myelopathy or radiculopathy, site unspecified
CPT/HCPCS: 74177; 82565

== ENCOUNTER 2022-01-01 20:57 | Emergency (ER) | payer OTHER ==
[2022-01-01 22:25] LABS: #Eosinphils 0.1 thou/uL (0.0-0.7); #Lymphocytes 1.6 thou/uL (1.20-3.40); #Monocytes 0.6 thou/uL (0.11-0.59); #Neutrophils 4.2 thou/uL (1.40-6.50); %Basophils 0.5 % (0.0-1.0); %Eosinophils 0.9 % (0.0-10.0); %Lymphocytes 25.1 % (21.0-51.0); %Monocytes 9.1 % (0.0-10.0); %Neutrophils 64.5 % (42.0-75.0); Hemoglobin 14.4 g/dL (12.0-16.0); Mean Corpuscular Hemoglobin 31.3 pg (27.0-31.0); Mean Corpuscular Volume 92.1 fL (78.0-98.0); Mean Platelet Volume 8.4 fL (7.4-10.4); Platelet Count 186 thou/uL (130-400); RBC Distribution Width 11.4 % (11.5-14.5); Red Blood Cell (RBC) Count 4.58 mill/uL (4.20-5.40); White Blood Cell (WBC) Count 6.5 thou/uL (4.8-10.8)
[2022-01-01 22:48] LABS: ALT (SGPT) 12 U/L (8-55); AST (SGOT) 29 U/L (5-34); Albumin 3.8 g/dL (3.4-4.8); Alkaline Phosphatase 178 U/L (40-110); Anion Gap 14 mmol/L (10-20); BUN (Urea Nitrogen) 9 mg/dL (9.8-20.1); Bilirubin, Total 0.5 mg/dL (0.2-1.2); Calc. Creatinine Clearance 0 mL/min (70-130); Carbon Dioxide 25 mmol/L (23-31); Chloride 105 mmol/L (98-107); Estimated GFR 97; Globulin 3.2 g/dL (2.4-3.5); Glucose 154 mg/dL (80-115); Potassium 3.8 mmol/L (3.5-5.1); Sodium 140 mmol/L (136-145)
== END 2022-01-01 23:43 | disposition home or self-care (01) ==
LOC: ERS 20:57
DX: J45.909 Unspecified asthma, uncomplicated (principal); I10 Essential (primary) hypertension; E11.9 Type 2 diabetes mellitus without complications
CPT/HCPCS: 71045; 80053; 84484; 85025; 93005

== ENCOUNTER 2022-01-03 13:43 | Emergency (ER) | payer OTHER ==
[2022-01-03] MEDS ORDERED: Acetaminophen 500 MG TAB ONE (14:14)
[2022-01-03 14:15] LABS: Hemoglobin 15.6 g/dL (12.0-16.0); Mean Corpuscular HGB CONC 33.5 g/dL (32.0-36.0); Mean Corpuscular Hemoglobin 31.5 pg (27.0-31.0); Mean Corpuscular Volume 93.9 fL (78.0-98.0); Mean Platelet Volume 8.4 fL (7.4-10.4); Platelet Count 189 thou/uL (130-400); RBC Distribution Width 11.6 % (11.5-14.5); Red Blood Cell (RBC) Count 4.96 mill/uL (4.20-5.40); White Blood Cell (WBC) Count 5.2 thou/uL (4.8-10.8)
[2022-01-03 14:26] LABS: ALT (SGPT) 14 U/L (8-55); AST (SGOT) 36 U/L (5-34); Alkaline Phosphatase 177 U/L (40-110); Anion Gap 14 mmol/L (10-20); BUN (Urea Nitrogen) 7 mg/dL (9.8-20.1); Calc. Creatinine Clearance 0 mL/min (70-130); Carbon Dioxide 25 mmol/L (23-31); Chloride 103 mmol/L (98-107); Estimated GFR 97; Globulin 3.5 g/dL (2.4-3.5); Glucose 124 mg/dL (80-115); Potassium 3.7 mmol/L (3.5-5.1); Protein, Total 7.5 g/dL (5.8-8.1); Sodium 138 mmol/L (136-145)
[2022-01-03 14:36] LABS: Lymphocytes 17 % (21-51); MDiff Complete? YES; Monocytes 12 % (0-10); Neutrophil 61 % (42-75); Platelet Morphology Comment Appears Adequate; Polychromasia SLIGHT = 2-3 cells (100X) (0-2/hpf); Reactive Lymphocytes 10 % (0-10); Stomatocytes SLIGHT = 2-5 cells (100X) (0-1/hpf)
[2022-01-03] MEDS ORDERED: Ondansetron PF 4 MG/2 ML Vial ONE (14:42)
[2022-01-03] MEDS ORDERED: Ketorolac Tromethamine 30 MG/ML VIAL ONE (14:42)
[2022-01-03] MEDS ORDERED: Dexamethasone 10 MG/ML VIAL ONE (15:47)
[2022-01-03 16:56] LABS: Bilirubin Negative (Negative); Blood, Urine Trace (Negative); Clarity Clear (Clear); Glucose, Urine (Dipstick) Normal (Negative); Ketone, Urine Negative (Negative); Leukocyte 75 Leu/uL (Negative); Nitrite Negative (Negative); Protein, Urine (Dipstick) 20 mg/dL (Neg-Trace); RBC/HPF 0-3 HPF (0-3); Specific Gravity, Urine 1.016 (1.002-1.036)
[2022-01-03 16:57] LABS: Bacteria/HPF 1+ HPF (None Seen)
== END 2022-01-03 17:53 | disposition home or self-care (01) ==
LOC: ERS 13:43
DX: B34.9 Viral infection, unspecified (principal); R06.00 Dyspnea, unspecified; Z20.822 Contact with and (suspected) exposure to COVID-19; E11.9 Type 2 diabetes mellitus without complications; I10 Essential (primary) hypertension; Z79.899 Other long term (current) drug therapy
CPT/HCPCS: 71045; 80053; 83605; 83880; 84484; 85025; 87040; 87086; 93005; 94640; U0003; U0005; 36415; 81003; 81015; 96374; 96375; J1100; J1885; J2405

== ENCOUNTER 2022-01-06 14:10 | Observation (INO) | payer MEDICARE, OTHER ==
[2022-01-06] MEDS ORDERED: Albuterol Sulfate 2.5 mg/3 ml Neb ONE (14:52)
[2022-01-06] MEDS ORDERED: Magnesium 2 GM/50 ML BAG (IN WATER) ONE (16:09)
[2022-01-06 16:30] LABS: SARS-CoV-2 NAA Rapid Test Not Detected (NotDetected)
[2022-01-06] MEDS ORDERED: methylPREDNISolone Sod Succ/PF 125 MG/2 ML VIAL ONE (16:42)
[2022-01-06] MEDS ORDERED: HumaLOG 300 UNITS/3 ML VIAL SC PRN (16:49)
[2022-01-06] MEDS ORDERED: Dextrose 5% in Water 1,000 ML IV PRN (16:49)
[2022-01-06] MEDS ORDERED: Dextrose 50% Abboject 50 ML SYRINGE SLOW IVP PRN (16:49)
[2022-01-06] MEDS ORDERED: Acetaminophen 325 MG TAB PO PRN (16:49)
[2022-01-06 17:10] LABS: #Lymphocytes 2.1 thou/uL (1.20-3.40); #Monocytes 0.8 thou/uL (0.11-0.59); #Neutrophils 11.2 thou/uL (1.40-6.50); %Basophils 0.3 % (0.0-1.0); %Eosinophils 0.1 % (0.0-10.0); %Lymphocytes 15.1 % (21.0-51.0); %Monocytes 5.7 % (0.0-10.0); %Neutrophils 78.9 % (42.0-75.0); Mean Corpuscular HGB CONC 34.1 g/dL (32.0-36.0); Mean Corpuscular Volume 93.9 fL (78.0-98.0); Mean Platelet Volume 8.4 fL (7.4-10.4); Platelet Count 171 thou/uL (130-400); RBC Distribution Width 11.8 % (11.5-14.5); Red Blood Cell (RBC) Count 4.68 mill/uL (4.20-5.40); White Blood Cell (WBC) Count 14.2 thou/uL (4.8-10.8)
[2022-01-06 17:29] VITALS: BMI 38.4
[2022-01-06 17:32] LABS: ALT (SGPT) 11 U/L (8-55); AST (SGOT) 26 U/L (5-34); Albumin 3.6 g/dL (3.4-4.8); Alkaline Phosphatase 148 U/L (40-110); Anion Gap 14 mmol/L (10-20); BUN (Urea Nitrogen) 7 mg/dL (9.8-20.1); Bilirubin, Total 1.1 mg/dL (0.2-1.2); Calc. Creatinine Clearance 125 mL/min (70-130); Calcium 8.6 mg/dL (7.8-10.44); Carbon Dioxide 24 mmol/L (23-31); Chloride 102 mmol/L (98-107); Estimated GFR 97; Globulin 3.3 g/dL (2.4-3.5); Glucose 156 mg/dL (80-115); Potassium 3.1 mmol/L (3.5-5.1); Protein, Total 6.9 g/dL (5.8-8.1); Sodium 137 mmol/L (136-145)
[2022-01-06] MEDS ORDERED: Potassium Chloride 20 MEQ TAB PO SCH (18:00)
[2022-01-06] MEDS: cefTRIAXone\\ROCEPHIN 1 GM in Sodium Chloride 0.9% 100 ML IVPB SCH (18:22)
[2022-01-06] MEDS: Azithromycin 500 MG in Sodium Chloride 0.9% 250 ML 250 ML IVPB SCH (18:25)
[2022-01-06 18:31] LABS: Troponin I 0.018 ng/mL (< 0.028)
[2022-01-06 21:39] LABS: Lactic Acid 2.2 mmol/L (0.5-2.2)
[2022-01-06] MEDS ORDERED: rOPINIRole HCl 0.25 MG TAB PO SCH (22:15)
[2022-01-07] MEDS: HumaLOG 300 UNITS/3 ML VIAL SC PRN ×3 (05:53→17:29)
[2022-01-07 07:06] LABS: #Lymphocytes 1.3 thou/uL (1.20-3.40); #Monocytes 0.4 thou/uL (0.11-0.59); %Lymphocytes 11.3 % (21.0-51.0); %Monocytes 3.4 % (0.0-10.0); %Neutrophils 85.3 % (42.0-75.0); Hemoglobin 13.5 g/dL (12.0-16.0); Mean Corpuscular HGB CONC 33.3 g/dL (32.0-36.0); Mean Corpuscular Hemoglobin 31.4 pg (27.0-31.0); Mean Corpuscular Volume 94.3 fL (78.0-98.0); Mean Platelet Volume 8.6 fL (7.4-10.4); Platelet Count 166 thou/uL (130-400); RBC Distribution Width 11.7 % (11.5-14.5); Red Blood Cell (RBC) Count 4.31 mill/uL (4.20-5.40); White Blood Cell (WBC) Count 11.7 thou/uL (4.8-10.8)
[2022-01-07 07:27] LABS: Anion Gap 13 mmol/L (10-20); BUN (Urea Nitrogen) 13 mg/dL (9.8-20.1); Calc. Creatinine Clearance 129 mL/min (70-130); Carbon Dioxide 23 mmol/L (23-31); Chloride 106 mmol/L (98-107); Estimated GFR 98; Glucose 299 mg/dL (80-115); Potassium 4.2 mmol/L (3.5-5.1); Sodium 138 mmol/L (136-145)
[2022-01-07] MEDS: Enoxaparin Sodium 40 MG/0.4 ML SYRINGE SC SCH (08:38)
[2022-01-07] MEDS: cefTRIAXone\\ROCEPHIN 1 GM in Sodium Chloride 0.9% 100 ML IVPB SCH (17:29)
[2022-01-07] MEDS: Azithromycin 500 MG in Sodium Chloride 0.9% 250 ML 250 ML IVPB SCH (17:29)
[2022-01-07] MEDS: methylPREDNISolone Sod Succ 40 MG VIAL IVP SCH ×2 (17:51→23:41)
[2022-01-07] MEDS ORDERED: rOPINIRole HCl 0.25 MG TAB PO SCH (21:00)
[2022-01-08] MEDS: HumaLOG 300 UNITS/3 ML VIAL SC PRN ×2 (05:35→12:55)
[2022-01-08] MEDS: methylPREDNISolone Sod Succ 40 MG VIAL IVP SCH ×2 (05:36→12:55)
[2022-01-08 06:11] LABS: #Monocytes 0.4 thou/uL (0.11-0.59); #Neutrophils 12.6 thou/uL (1.40-6.50); %Basophils 0.1 % (0.0-1.0); %Monocytes 2.5 % (0.0-10.0); %Neutrophils 84.3 % (42.0-75.0); Hemoglobin 14.3 g/dL (12.0-16.0); Mean Corpuscular HGB CONC 33.1 g/dL (32.0-36.0); Mean Corpuscular Hemoglobin 31.5 pg (27.0-31.0); Mean Platelet Volume 8.8 fL (7.4-10.4); Platelet Count 190 thou/uL (130-400); RBC Distribution Width 11.6 % (11.5-14.5); Red Blood Cell (RBC) Count 4.55 mill/uL (4.20-5.40)
[2022-01-08 06:36] LABS: Anion Gap 14 mmol/L (10-20); BUN (Urea Nitrogen) 16 mg/dL (9.8-20.1); Calc. Creatinine Clearance 117 mL/min (70-130); Calcium 9.1 mg/dL (7.8-10.44); Carbon Dioxide 26 mmol/L (23-31); Chloride 104 mmol/L (98-107); Estimated GFR 91; Glucose 297 mg/dL (80-115); Sodium 140 mmol/L (136-145)
[2022-01-08 07:59] VITALS: TEMP 97.5
[2022-01-08] MEDS: Enoxaparin Sodium 40 MG/0.4 ML SYRINGE SC SCH (08:23)
[2022-01-08 19:25] VITALS: BP 153/83
== END 2022-01-08 15:12 | disposition home or self-care (01) ==
LOC: ERS 14:10 → T4-A 15:41
PROVIDERS: ADMIT Internal Medicine; ATTEND Internal Medicine
DX: J45.901 Unspecified asthma with (acute) exacerbation (principal); E11.9 Type 2 diabetes mellitus without complications; I10 Essential (primary) hypertension; E78.5 Hyperlipidemia, unspecified; K21.9 Gastro-esophageal reflux disease without esophagitis; G25.81 Restless legs syndrome; Z79.4 Long term (current) use of insulin; Z79.899 Other long term (current) drug therapy; Z20.822 Contact with and (suspected) exposure to COVID-19
CPT/HCPCS: 71045; 80048 ×2; 80053; 82962 ×3; 83605; 84484; 85025 ×3; 87040; 87804 ×2; 93005; 94640 ×3; 94644; 96365; 96375; 99285; U0002; 36415; 36416; 96372; 96376; G0378; J0456; J0696; J1650; J1815; J2920; J2930; J3475; J3490; J7050; J7611; J7620

== ENCOUNTER 2022-08-13 20:59 | Emergency (ER) | payer MEDICARE | END 2022-08-13 23:54 | disposition home or self-care (01) | LOC: ERS 20:59 | DX: U07.1 COVID-19 (principal); E11.9 Type 2 diabetes mellitus without complications; I10 Essential (primary) hypertension; J45.909 Unspecified asthma, uncomplicated; Z79.4 Long term (current) use of insulin | CPT/HCPCS: 99283 ==

== ENCOUNTER 2022-08-30 12:10 | Observation (INO) | payer MEDICARE ==
[2022-08-30 13:04] LABS: #Basophils 0.1 thou/uL (0.0-0.2); #Lymphocytes 2.5 thou/uL (1.20-3.40); #Monocytes 0.5 thou/uL (0.11-0.59); #Neutrophils 5.9 thou/uL (1.40-6.50); %Eosinophils 0.3 % (0.0-10.0); %Lymphocytes 27.9 % (21.0-51.0); %Monocytes 5.4 % (0.0-10.0); %Neutrophils 65.4 % (42.0-75.0); Hemoglobin 15.1 g/dL (12.0-16.0); Mean Corpuscular HGB CONC 34.4 g/dL (32.0-36.0); Mean Corpuscular Hemoglobin 31.8 pg (27.0-31.0); Mean Corpuscular Volume 92.5 fl (78.0-98.0); Mean Platelet Volume 8.3 fL (7.4-10.4); Platelet Count 225 10x3/uL (130-400); RBC Distribution Width 11.4 % (11.5-14.5); Red Blood Cell (RBC) Count 4.74 mill/uL (4.20-5.40)
[2022-08-30 13:14] LABS: Bacteria/HPF 4+ HPF (None Seen); Bilirubin Negative (Negative); Blood, Urine Negative (Negative); Clarity Clear (Clear); Glucose, Urine (Dipstick) Normal (Negative); Ketone, Urine Negative (Negative); Leukocyte 75 Leu/uL (Negative); Nitrite Negative (Negative); Protein, Urine (Dipstick) Negative (Neg-Trace); RBC/HPF 0-3 HPF (0-3); Specific Gravity, Urine 1.011 (1.002-1.036); Squamous Epithelial 0-3 HPF (0-3); Urobilinogen Normal mg/dL (Less than 2)
[2022-08-30 13:21] LABS: Amphetamine Not Detected (NotDetected); Barbiturates Screen Not Detected (NotDetected); Benzodiazepine Screen Not Detected (NotDetected); Cocaine Metabolite Screen Not Detected (NotDetected); Methadone Not Detected (NotDetected); Methamphetamine Not Detected (NotDetected); Opiate Screen Not Detected (NotDetected); Oxycodone Screen Not Detected (NotDetected); Phencyclidine (PCP) Not Detected (NotDetected); THC/Cannabinoid Screen Not Detected (NotDetected); Tricyclic Screen Not Detected (NotDetected)
[2022-08-30 13:34] LABS: Prothrombin Time 13.6 sec (12.0-14.7)
[2022-08-30 13:43] LABS: ALT (SGPT) 7 U/L (8-55); AST (SGOT) 17 U/L (5-34); Acetaminophen Less than 10.0 mcg/mL (10.0-30.0); Albumin 3.8 g/dL (3.4-4.8); Alcohol Less than 10 mg/dL (Less than 10); Alkaline Phosphatase 136 U/L (40-110); Anion Gap 11 mmol/L (10-20); BUN (Urea Nitrogen) 12 mg/dL (9.8-20.1); CK (CPK) 45 U/L (29-168); Calc. Creatinine Clearance 0 mL/min (70-130); Calcium 9.2 mg/dL (7.8-10.44); Carbon Dioxide 25 mmol/L (23-31); Chloride 108 mmol/L (98-107); Estimated GFR 97; Globulin 3.3 g/dL (2.4-3.5); Glucose 95 mg/dL (80-115); Potassium 3.5 mmol/L (3.5-5.1); Protein, Total 7.1 g/dL (5.8-8.1); Salicylate Less than 8.0 mg/dL (15.0-30.0); Sodium 140 mmol/L (136-145)
[2022-08-30] MEDS ORDERED: Aspirin Chewable 81 MG TAB ONE (16:17)
[2022-08-30] MEDS ORDERED: Ondansetron ODT 4 MG TAB SL PRN (17:30)
[2022-08-30] MEDS ORDERED: Acetaminophen 325 MG TAB PO PRN (17:30)
[2022-08-30] MEDS ORDERED: Ondansetron PF 4 MG/2 ML Vial IVP PRN ×2 (17:30→18:51)
[2022-08-30 18:00] VITALS: BMI 37.8
[2022-08-30 18:25] LABS: Troponin I 0.011 ng/mL (< 0.028)
[2022-08-30 18:35] LABS: Cardiac Risk 4.3 (Less than 4.5)
[2022-08-30 18:41] LABS: Hemoglobin A1c 5.8 % (4.0-6.0)
[2022-08-30] MEDS ORDERED: Bisacodyl 5 MG TAB PO PRN (18:51)
[2022-08-30] MEDS ORDERED: HYDROcodone/Acetaminophen 5/325 mg Tablet PO PRN ×2 (18:51)
[2022-08-30] MEDS ORDERED: Dextrose 5% in Water 1,000 ML IV PRN (18:54)
[2022-08-30] MEDS ORDERED: Dextrose 50% Abboject 50 ML SYRINGE SLOW IVP PRN (18:54)
[2022-08-30] MEDS ORDERED: HumaLOG 300 UNITS/3 ML VIAL SC PRN (18:54)
[2022-08-30] MEDS: Atorvastatin Calcium 40 MG TAB PO SCH (20:41)
[2022-08-30 21:39] LABS: Troponin I Less than 0.010 ng/mL (< 0.028)
[2022-08-31 06:07] LABS: #Eosinphils 0.1 thou/uL (0.0-0.7); #Lymphocytes 3.1 thou/uL (1.20-3.40); #Monocytes 0.7 thou/uL (0.11-0.59); #Neutrophils 5.1 thou/uL (1.40-6.50); %Basophils 0.3 % (0.0-1.0); %Monocytes 7.3 % (0.0-10.0); %Neutrophils 56.4 % (42.0-75.0); Hemoglobin 14.6 g/dL (12.0-16.0); Mean Corpuscular HGB CONC 34.4 g/dL (32.0-36.0); Mean Corpuscular Volume 93.1 fl (78.0-98.0); Mean Platelet Volume 8.3 fL (7.4-10.4); Platelet Count 230 10x3/uL (130-400); RBC Distribution Width 11.4 % (11.5-14.5); Red Blood Cell (RBC) Count 4.55 mill/uL (4.20-5.40)
[2022-08-31 06:23] LABS: Anion Gap 13 mmol/L (10-20); BUN (Urea Nitrogen) 14 mg/dL (9.8-20.1); Calc. Creatinine Clearance 120 mL/min (70-130); Calcium 9.4 mg/dL (7.8-10.44); Carbon Dioxide 25 mmol/L (23-31); Cardiac Risk 4.6 (Less than 4.5); Chloride 106 mmol/L (98-107); Cholesterol 148 mg/dl (< 200 Desired); Estimated GFR 97; Glucose 126 mg/dL (80-115); HDL Cholesterol 32 mg/dL (>60 Neg Risk); LDL Cholesterol, Calculated 93 mg/dL; Potassium 3.6 mmol/L (3.5-5.1); Sodium 140 mmol/L (136-145); Triglycerides 116 mg/dL (Less than 150)
[2022-08-31] MEDS: Aspirin 325 mg Enteric Coated Tablet PO SCH (08:34)
[2022-08-31] MEDS: Atorvastatin Calcium 40 MG TAB PO SCH (21:00)
[2022-09-01] MEDS ORDERED: Losartan/Hydrochlorothiazide 100 mg/25 mg Tablet PO SCH (09:00)
[2022-09-01] MEDS ORDERED: NIFEdipine XL 30 MG TAB PO SCH (09:00)
[2022-09-01] MEDS ORDERED: NIFEdipine XL 60 MG TAB PO SCH (09:00)
[2022-09-01] MEDS: Aspirin 325 mg Enteric Coated Tablet PO SCH (09:42)
[2022-09-01 12:00] VITALS: BP 140/74; TEMP 97.9
== END 2022-09-01 12:21 | disposition home or self-care (01) ==
LOC: ERS 12:10 → NEURO 16:36
PROVIDERS: ADMIT Hospitalist; ATTEND Hospitalist
DX: R20.2 Paresthesia of skin (principal); I16.0 Hypertensive urgency; E11.43 Type 2 diabetes mellitus with diabetic autonomic (poly)neuropathy; K31.84 Gastroparesis; J44.9 Chronic obstructive pulmonary disease, unspecified; I10 Essential (primary) hypertension; I08.3 Combined rheumatic disorders of mitral, aortic and tricuspid valves; Z86.16 Personal history of COVID-19; Z86.73 Personal history of transient ischemic attack (TIA), and cerebral infarction without residual deficits; Z79.4 Long term (current) use of insulin; Z79.85 Long-term (current) use of injectable non-insulin antidiabetic drugs; Z79.899 Other long term (current) drug therapy; Z20.822 Contact with and (suspected) exposure to COVID-19
CPT/HCPCS: 70450; 70551; 71045; 80048; 80061 ×2; 80306; 80307; 82550; 82962 ×3; 83036; 84484 ×2; 85025; 85610; 85730; 93005; 93306; 93880; 99285; G0378 ×4; U0003; U0005; 36415; 36416; 80053; 81003; 81015; 84443

== ENCOUNTER 2022-09-09 14:06 | Emergency (ER) | payer MEDICARE ==
[2022-09-09 14:39] LABS: #Basophils 0.1 thou/uL (0.0-0.2); #Eosinphils 0.1 thou/uL (0.0-0.7); #Lymphocytes 3.4 thou/uL (1.20-3.40); #Monocytes 0.8 thou/uL (0.11-0.59); #Neutrophils 9.2 thou/uL (1.40-6.50); %Basophils 0.5 % (0.0-1.0); %Eosinophils 0.4 % (0.0-10.0); %Monocytes 5.8 % (0.0-10.0); %Neutrophils 68.3 % (42.0-75.0); Hemoglobin 15.7 g/dL (12.0-16.0); Mean Corpuscular HGB CONC 34.5 g/dL (32.0-36.0); Mean Corpuscular Hemoglobin 31.6 pg (27.0-31.0); Mean Corpuscular Volume 91.8 fl (78.0-98.0); Mean Platelet Volume 8.8 fL (7.4-10.4); Platelet Count 230 10x3/uL (130-400); RBC Distribution Width 11.5 % (11.5-14.5); Red Blood Cell (RBC) Count 4.96 mill/uL (4.20-5.40); White Blood Cell (WBC) Count 13.5 10x3/uL (4.8-10.8)
[2022-09-09 14:59] LABS: ALT (SGPT) 8 U/L (8-55); AST (SGOT) 19 U/L (5-34); Albumin 4.1 g/dL (3.4-4.8); Alkaline Phosphatase 159 U/L (40-110); Anion Gap 11 mmol/L (10-20); BUN (Urea Nitrogen) 12 mg/dL (9.8-20.1); Bilirubin, Total 0.6 mg/dL (0.2-1.2); Calc. Creatinine Clearance 0 mL/min (70-130); Calcium 9.6 mg/dL (7.8-10.44); Carbon Dioxide 25 mmol/L (23-31); Chloride 107 mmol/L (98-107); Estimated GFR 97; Globulin 3.5 g/dL (2.4-3.5); Glucose 115 mg/dL (80-115); Lipase 9 U/L (8-78); Potassium 3.9 mmol/L (3.5-5.1); Protein, Total 7.6 g/dL (5.8-8.1); Sodium 139 mmol/L (136-145)
[2022-09-09 16:11] LABS: Bacteria/HPF 2+ HPF (None Seen); Bilirubin Negative (Negative); Blood, Urine Trace (Negative); Calcium Oxalate Crystals Rare HPF (None Seen); Clarity Turbid (Clear); Glucose, Urine (Dipstick) 30 mg/dL (Negative); Ketone, Urine Trace mg/dL (Negative); Leukocyte 75 Leu/uL (Negative); Nitrite Negative (Negative); Protein, Urine (Dipstick) 30 mg/dL (Neg-Trace); RBC/HPF 0-3 HPF (0-3); Urobilinogen 3 mg/dL (Less than 2)
[2022-09-09] MEDS ORDERED: Ondansetron ODT 4 MG TAB ONE (16:56)
[2022-09-09] MEDS ORDERED: Acetaminophen 500 MG TAB ONE (16:56)
== END 2022-09-09 17:53 | disposition home or self-care (01) ==
LOC: ERS 14:06
DX: N39.0 Urinary tract infection, site not specified (principal)
CPT/HCPCS: 36415; 80053; 81003; 81015; 83605; 83690; 84484; 85025; 87086; 99284; Q0162

== ENCOUNTER 2022-09-11 17:39 | Emergency (ER) | payer MEDICARE ==
[2022-09-11] MEDS ORDERED: Metoclopramide HCl 10 MG/2 ML VIAL ONE (18:22)
[2022-09-11] MEDS ORDERED: diphenhydrAMINE 50 MG/ML VIAL ONE (18:22)
[2022-09-11 18:36] LABS: #Monocytes 0.6 thou/uL (0.11-0.59); #Neutrophils 8.3 thou/uL (1.40-6.50); %Basophils 0.1 % (0.0-1.0); %Eosinophils 0.2 % (0.0-10.0); %Lymphocytes 18.2 % (21.0-51.0); %Monocytes 5.6 % (0.0-10.0); %Neutrophils 75.9 % (42.0-75.0); Hemoglobin 15.3 g/dL (12.0-16.0); Mean Corpuscular HGB CONC 33.8 g/dL (32.0-36.0); Mean Corpuscular Hemoglobin 30.8 pg (27.0-31.0); Mean Corpuscular Volume 91.2 fl (78.0-98.0); Mean Platelet Volume 8.7 fL (7.4-10.4); Platelet Count 214 10x3/uL (130-400); RBC Distribution Width 11.6 % (11.5-14.5); Red Blood Cell (RBC) Count 4.96 mill/uL (4.20-5.40); White Blood Cell (WBC) Count 10.9 10x3/uL (4.8-10.8)
[2022-09-11 19:05] LABS: ALT (SGPT) 10 U/L (8-55); AST (SGOT) 26 U/L (5-34); Alkaline Phosphatase 163 U/L (40-110); Anion Gap 10 mmol/L (10-20); BUN (Urea Nitrogen) 19 mg/dL (9.8-20.1); Bilirubin, Total 0.9 mg/dL (0.2-1.2); Calc. Creatinine Clearance 0 mL/min (70-130); Calcium 9.4 mg/dL (7.8-10.44); Carbon Dioxide 26 mmol/L (23-31); Chloride 108 mmol/L (98-107); Estimated GFR 86; Globulin 3.5 g/dL (2.4-3.5); Glucose 101 mg/dL (80-115); Potassium 3.9 mmol/L (3.5-5.1); Protein, Total 7.5 g/dL (5.8-8.1); Sodium 140 mmol/L (136-145)
[2022-09-11 19:29] LABS: Bacteria/HPF 4+ HPF (None Seen); Bilirubin Negative (Negative); Blood, Urine Trace (Negative); Clarity Turbid (Clear); Glucose, Urine (Dipstick) Normal (Negative); Ketone, Urine 20 mg/dL (Negative); Leukocyte 500 Leu/uL (Negative); Nitrite Negative (Negative); Protein, Urine (Dipstick) 50 mg/dL (Neg-Trace); Specific Gravity, Urine 1.026 (1.002-1.036); WBC/HPF Greater than 50 HPF (0-3)
[2022-09-11] MEDS ORDERED: cefTRIAXone (ROCEPHIN) 2 GM VIAL ONE (20:05)
== END 2022-09-11 23:03 | disposition home or self-care (01) ==
LOC: ERS 17:39
DX: N39.0 Urinary tract infection, site not specified (principal); E11.9 Type 2 diabetes mellitus without complications; J45.909 Unspecified asthma, uncomplicated; J44.9 Chronic obstructive pulmonary disease, unspecified; I10 Essential (primary) hypertension; Z86.73 Personal history of transient ischemic attack (TIA), and cerebral infarction without residual deficits; Z79.82 Long term (current) use of aspirin
CPT/HCPCS: 80053; 81003; 81015; 85025; 96361; 96365; 96366; 96375; J0696; J1200; J2765

== ENCOUNTER 2023-04-19 19:27 | Emergency (ER) | payer MEDICARE ==
[2023-04-19 19:55] LABS: Bilirubin Negative (Negative); Blood, Urine 1+ (Negative); Clarity Clear (Clear); Glucose, Urine (Dipstick) Normal (Negative); Ketone, Urine Negative (Negative); Leukocyte 500 Leu/uL (Negative); Nitrite Negative (Negative); Protein, Urine (Dipstick) Negative (Neg-Trace); Specific Gravity, Urine 1.022 (1.002-1.036); pH, Urine 5.5 (5.0-9.0)
[2023-04-19 20:01] LABS: Bacteria/HPF 2+ HPF (None Seen); CAUTI Indications for Culture Pelvic or flank pain; RBC/HPF 0-3 HPF (0-3); Squamous Epithelial 0-3 HPF (0-3)
[2023-04-19 20:02] LABS: Urine Culture Reflex Yes Yes
[2023-04-19] MEDS ORDERED: Cephalexin 250 MG CAP ONE (20:58)
[2023-04-19] MEDS ORDERED: Ondansetron ODT 4 MG TAB ONE (21:05)
== END 2023-04-19 21:11 | disposition home or self-care (01) ==
LOC: ERS 19:27
DX: N39.0 Urinary tract infection, site not specified (principal); I10 Essential (primary) hypertension; E11.43 Type 2 diabetes mellitus with diabetic autonomic (poly)neuropathy; K31.84 Gastroparesis; J44.9 Chronic obstructive pulmonary disease, unspecified; Z86.73 Personal history of transient ischemic attack (TIA), and cerebral infarction without residual deficits; Z79.4 Long term (current) use of insulin; Z79.82 Long term (current) use of aspirin; Z79.899 Other long term (current) drug therapy
CPT/HCPCS: 81001; 87086; 99283; Q0162

== ENCOUNTER 2023-06-23 21:01 | Emergency (ER) | payer MEDICARE, SELFPAY ==
[2023-06-23] MEDS ORDERED: Albuterol 2.5 MG (3 mL) NEB ONE (21:41)
[2023-06-23] MEDS ORDERED: Ipratropium/Albuterol 3 ML NEB ONE (21:41)
[2023-06-23] MEDS ORDERED: predniSONE 20 MG TAB ONE (21:41)
[2023-06-23 22:00] LABS: #Eosinphils 0.1 thou/uL (0.0-0.7); #Monocytes 0.7 thou/uL (0.11-0.59); #Neutrophils 6.7 thou/uL (1.40-6.50); %Basophils 0.2 % (0.0-1.0); %Eosinophils 0.8 % (0.0-10.0); %Lymphocytes 21.4 % (21.0-51.0); %Neutrophils 70.4 % (42.0-75.0); Hemoglobin 15.2 g/dL (12.0-16.0); Mean Corpuscular HGB CONC 33.8 g/dL (32.0-36.0); Mean Corpuscular Volume 91.6 fl (78.0-98.0); Mean Platelet Volume 10.6 fL (7.4-10.4); Platelet Count 233 10x3/uL (130-400); RBC Distribution Width 12.1 % (11.5-14.5); Red Blood Cell (RBC) Count 4.91 mill/uL (4.20-5.40); White Blood Cell (WBC) Count 9.5 10x3/uL (4.8-10.8)
[2023-06-23 22:23] LABS: ALT (SGPT) 8 U/L (8-55); AST (SGOT) 20 U/L (5-34); Albumin 4.1 g/dL (3.4-4.8); Alkaline Phosphatase 180 U/L (40-110); Anion Gap 11 mmol/L (10-20); BUN (Urea Nitrogen) 10 mg/dL (9.8-20.1); Calc. Creatinine Clearance 0 mL/min (70-130); Calcium 9.1 mg/dL (7.8-10.44); Carbon Dioxide 26 mmol/L (23-31); Chloride 107 mmol/L (98-107); Estimated GFR 91; Globulin 3.3 g/dL (2.4-3.5); Glucose 111 mg/dL (80-115); Protein, Total 7.4 g/dL (5.8-8.1); Sodium 140 mmol/L (136-145)
[2023-06-23 22:26] LABS: Troponin I Less than 0.010 ng/mL (< 0.028)
[2023-06-23 22:38] LABS: SARS-CoV-2 NAA Rapid Test DETECTED (NotDetected)
== END 2023-06-23 22:58 | disposition home or self-care (01) ==
LOC: ERS 21:01
DX: U07.1 COVID-19 (principal); E11.9 Type 2 diabetes mellitus without complications; I10 Essential (primary) hypertension; J44.9 Chronic obstructive pulmonary disease, unspecified; Z79.899 Other long term (current) drug therapy; Z79.82 Long term (current) use of aspirin; Z79.4 Long term (current) use of insulin
CPT/HCPCS: 36415; 71045; 80053; 84443; 84484; 85025; 93005; J7512; J7611; J7620

== ENCOUNTER 2023-07-03 08:32 | Outpatient (CLI) | payer MEDICARE | END 2023-07-03 08:33 | disposition home or self-care (01) | LOC: BICULT 08:32 | PROVIDERS: ATTEND Internal Medicine | DX: R74.8 Abnormal levels of other serum enzymes (principal); K76.0 Fatty (change of) liver, not elsewhere classified | CPT/HCPCS: 76705 ==

== ENCOUNTER 2023-08-10 20:27 | Inpatient (IN) | payer MEDICARE ==
[2023-08-10 22:47] LABS: #Eosinphils 0.1 thou/uL (0.0-0.7); #Monocytes 0.6 thou/uL (0.11-0.59); #Neutrophils 4.9 thou/uL (1.40-6.50); %Basophils 0.2 % (0.0-1.0); %Eosinophils 0.9 % (0.0-10.0); %Lymphocytes 36.5 % (21.0-51.0); %Monocytes 6.7 % (0.0-10.0); %Neutrophils 55.5 % (42.0-75.0); Hematocrit 41.4 % (36.0-47.0); Hemoglobin 14.4 g/dL (12.0-16.0); Mean Corpuscular HGB CONC 34.8 g/dL (32.0-36.0); Mean Corpuscular Hemoglobin 31.3 pg (27.0-31.0); Mean Platelet Volume 11.2 fL (7.4-10.4); Platelet Count 221 10x3/uL (130-400); White Blood Cell (WBC) Count 8.9 10x3/uL (4.8-10.8)
[2023-08-10 23:13] LABS: ALT (SGPT) 7 U/L (8-55); AST (SGOT) 14 U/L (5-34); Albumin 3.8 g/dL (3.4-4.8); Alkaline Phosphatase 256 U/L (40-110); Anion Gap 16 mmol/L (10-20); BUN (Urea Nitrogen) 13 mg/dL (9.8-20.1); Bilirubin, Total 0.5 mg/dL (0.2-1.2); Calc. Creatinine Clearance 0 mL/min (70-130); Calcium 9.6 mg/dL (7.8-10.44); Carbon Dioxide 21 mmol/L (23-31); Chloride 104 mmol/L (98-107); Estimated GFR 81; Globulin 3.5 g/dL (2.4-3.5); Glucose 378 mg/dL (80-115); Potassium 4.8 mmol/L (3.5-5.1); Protein, Total 7.3 g/dL (5.8-8.1); Sodium 136 mmol/L (136-145)
[2023-08-10 23:19] LABS: Troponin I 0.011 ng/mL (< 0.028)
[2023-08-11 01:45] LABS: Troponin I Less than 0.010 ng/mL (< 0.028)
[2023-08-11] MEDS ORDERED: Aspirin Chewable 81 MG TAB ONE (02:48)
[2023-08-11] MEDS ORDERED: Acetaminophen 500 MG TAB ONE (02:48)
[2023-08-11] MEDS ORDERED: Nitroglycerin 0.4 MG TAB 1 EACH ONE (02:49)
[2023-08-11] MEDS ORDERED: Ondansetron ODT 4 MG TAB PO PRN (03:37)
[2023-08-11] MEDS ORDERED: Dextrose 50% Abboject 50 ML SYRINGE SLOW IVP PRN (03:37)
[2023-08-11] MEDS ORDERED: Dextrose 5% in Water 1,000 ML IV PRN (03:37)
[2023-08-11] MEDS ORDERED: Glucagon 1 MG/ML KIT IM PRN (03:37)
[2023-08-11] MEDS ORDERED: Ondansetron PF 4 MG/2 ML Vial IVP PRN (03:37)
[2023-08-11] MEDS ORDERED: Acetaminophen 650 MG Suppository PR PRN (03:37)
[2023-08-11] MEDS ORDERED: Nitroglycerin 0.4 MG TAB (25 Tab Bottle) SL PRN (03:37)
[2023-08-11] MEDS ORDERED: Ipratropium/Albuterol 3 ML NEB NEB PRN ×2 (03:41→05:28)
[2023-08-11 03:49] VITALS: BMI 39.0
[2023-08-11 05:38] LABS: Troponin I Less than 0.010 ng/mL (< 0.028)
[2023-08-11 07:40] LABS: Troponin I Less than 0.010 ng/mL (< 0.028)
[2023-08-11] MEDS: hydrALAZINE 20 MG/ML VIAL SLOW IVP PRN (09:40)
[2023-08-11] MEDS: Aspirin Chewable 81 MG TAB PO SCH (09:41)
[2023-08-11] MEDS ORDERED: Regadenoson 0.4 MG/5 ML SYRINGE ONE (11:53)
[2023-08-11] MEDS ORDERED: Labetalol HCl 100 MG/20 ML VIAL SLOW IVP PRN (14:53)
[2023-08-11] MEDS: NIFEdipine XL 30 MG ER.TAB PO SCH (15:35)
[2023-08-11] MEDS: HumaLOG 300 UNITS/3 ML VIAL SC PRN ×2 (15:36→23:27)
[2023-08-11] MEDS ORDERED: Communication Order-Pharmacy FS SCH (17:15)
[2023-08-11] MEDS: Sodium Chloride 0.9% 1,000 ML IV SCH (18:20)
[2023-08-11] MEDS: Acetaminophen 325 MG TAB PO PRN (18:26)
[2023-08-11] MEDS: Atorvastatin Calcium 40 MG TAB PO SCH (23:27)
[2023-08-11] MEDS: NIFEdipine XL 60 MG ER.TAB PO SCH (23:27)
[2023-08-11] MEDS: rOPINIRole HCl 0.25 MG TAB PO SCH (23:58)
[2023-08-12 04:37] LABS: #Eosinphils 0.1 thou/uL (0.0-0.7); #Monocytes 0.6 thou/uL (0.11-0.59); %Basophils 0.3 % (0.0-1.0); %Eosinophils 1.6 % (0.0-10.0); %Lymphocytes 35.6 % (21.0-51.0); %Monocytes 8.2 % (0.0-10.0); %Neutrophils 54.2 % (42.0-75.0); Hematocrit 40.1 % (36.0-47.0); Hemoglobin 13.5 g/dL (12.0-16.0); Mean Corpuscular HGB CONC 33.7 g/dL (32.0-36.0); Mean Corpuscular Hemoglobin 30.6 pg (27.0-31.0); Mean Corpuscular Volume 90.9 fl (78.0-98.0); Mean Platelet Volume 11.3 fL (7.4-10.4); Platelet Count 217 10x3/uL (130-400); RBC Distribution Width 12.1 % (11.5-14.5); Red Blood Cell (RBC) Count 4.41 mill/uL (4.20-5.40); White Blood Cell (WBC) Count 7.4 10x3/uL (4.8-10.8)
[2023-08-12 05:00] LABS: Anion Gap 13 mmol/L (10-20); BUN (Urea Nitrogen) 14 mg/dL (9.8-20.1); Calc. Creatinine Clearance 124 mL/min (70-130); Calcium 8.6 mg/dL (7.8-10.44); Carbon Dioxide 22 mmol/L (23-31); Chloride 107 mmol/L (98-107); Estimated GFR 97; Glucose 211 mg/dL (80-115); Potassium 4.1 mmol/L (3.5-5.1); Sodium 138 mmol/L (136-145)
[2023-08-12] MEDS ORDERED: NIFEdipine XL 60 MG ER.TAB PO SCH (09:00)
[2023-08-12] MEDS ORDERED: Lidocaine 1% (PF) 30 ML VIAL ONE (09:39)
[2023-08-12] MEDS ORDERED: Heparin 10,000 UNITS/ 10 ML VIAL ONE (09:39)
[2023-08-12] MEDS ORDERED: Midazolam HCl 2 mg/2 ml Vial ONE (10:19)
[2023-08-12] MEDS ORDERED: fentaNYL 50 mcg/mL 1 mL Vial ONE (10:19)
[2023-08-12] MEDS ORDERED: Acetaminophen/Codeine 30-300mg Tablet PO PRN (10:41)
[2023-08-12] MEDS ORDERED: Sodium Chloride 0.9% 200 ML IV PRN (10:41)
[2023-08-12] MEDS: Sodium Chloride 0.9% 500 ML IV SCH (11:37)
[2023-08-12 16:42] VITALS: BP 141/63; TEMP 97.8
== END 2023-08-12 17:54 | disposition home or self-care (01) | DRG 287 ==
LOC: ERS 20:27 → ERHOLD 08-11 03:18 → 2SW 08-11 08:26 → OBSVTOIN 08-11 14:54
PROVIDERS: ADMIT Student in an Organized Health Care Education/Training Program; ATTEND Internal Medicine
PROC: B2111ZZ Fluoroscopy of Multiple Coronary Arteries using Low Osmolar Contrast (ICD-10-PCS; principal; 2023-08-12)
PROC: 4A023N7 Measurement of Cardiac Sampling and Pressure, Left Heart, Percutaneous Approach (ICD-10-PCS; 2023-08-12)
PROC: B2151ZZ Fluoroscopy of Left Heart using Low Osmolar Contrast (ICD-10-PCS; 2023-08-12)
DX: R07.9 Chest pain, unspecified (principal); I10 Essential (primary) hypertension; J44.9 Chronic obstructive pulmonary disease, unspecified; E11.65 Type 2 diabetes mellitus with hyperglycemia; J45.909 Unspecified asthma, uncomplicated; K31.84 Gastroparesis; G47.33 Obstructive sleep apnea (adult) (pediatric); Z79.4 Long term (current) use of insulin; Z79.899 Other long term (current) drug therapy; Z79.82 Long term (current) use of aspirin; Z86.73 Personal history of transient ischemic attack (TIA), and cerebral infarction without residual deficits; Z98.51 Tubal ligation status
CPT/HCPCS: 36415; 36416; 71045; 78452; 80048; 80053; 84484; 85025; 93005; 93017; 93458; 94760; 99152; A9502; C1769; J0360; J1644; J1815; J2001; J2250; J2785; J3010; J7030; J7050

== ENCOUNTER 2023-12-10 22:44 | Emergency (ER) | payer MEDICARE ==
[2023-12-11] MEDS ORDERED: Dexamethasone 4 MG TAB ONE (00:19)
== END 2023-12-11 00:39 | disposition home or self-care (01) ==
LOC: ERS 22:44
DX: M25.561 Pain in right knee (principal); G89.29 Other chronic pain; J44.9 Chronic obstructive pulmonary disease, unspecified; I10 Essential (primary) hypertension; E11.43 Type 2 diabetes mellitus with diabetic autonomic (poly)neuropathy; K31.84 Gastroparesis; Z86.73 Personal history of transient ischemic attack (TIA), and cerebral infarction without residual deficits
CPT/HCPCS: 99282; J8540

== ENCOUNTER 2024-01-02 13:35 | Emergency (ER) | payer MEDICARE ==
[2024-01-02 14:14] LABS: #Basophils Less than 0.03 10x3/uL (0.0-0.2); #Eosinphils Less than 0.03 10x3/uL (0.0-0.7); %Basophils 0.2 % (0.0-1.0); %Eosinophils 0.2 % (0.0-10.0); %Lymphocytes 23.3 % (21.0-51.0); %Monocytes 4.9 % (0.0-10.0); %Neutrophils 71.2 % (42.0-75.0); Hematocrit 43.1 % (36.0-47.0); Hemoglobin 15.1 g/dL (12.0-16.0); Mean Corpuscular Hemoglobin 30.9 pg (27.0-31.0); Mean Corpuscular Volume 88.3 fL (78.0-98.0); Mean Platelet Volume 10.9 fL (7.4-10.4); Platelet Count 229 10x3/uL (130-400); RBC Distribution Width 11.9 % (11.5-14.5); Red Blood Cell (RBC) Count 4.88 mill/uL (4.20-5.40)
[2024-01-02 14:29] LABS: Bilirubin Negative (Negative); Blood, Urine Trace (Negative); CAUTI Indications for Culture Pelvic or flank pain; Clarity Turbid (Clear); Glucose, Urine (Dipstick) Greater than 1000 mg/dL (Negative); Ketone, Urine 20 mg/dL (Negative); Leukocyte 250 Leu/uL (Negative); Nitrite Negative (Negative); Protein, Urine (Dipstick) 20 mg/dL (Neg-Trace); RBC/HPF 0-3 HPF (0-3); Specific Gravity, Urine 1.041 (1.002-1.036); Urobilinogen 3 mg/dL (Less than 2); WBC/HPF 21-50 HPF (0-3)
[2024-01-02 14:32] LABS: ALT (SGPT) 12 U/L (8-55); AST (SGOT) 19 U/L (5-34); Albumin 3.6 g/dL (3.4-4.8); Alkaline Phosphatase 288 U/L (40-110); Anion Gap 14 mmol/L (10-20); BUN (Urea Nitrogen) 13 mg/dL (9.8-20.1); Bilirubin, Total 0.8 mg/dL (0.2-1.2); Calc. Creatinine Clearance 0 mL/min (70-130); Calcium 9.4 mg/dL (7.8-10.44); Carbon Dioxide 24 mmol/L (23-31); Chloride 103 mmol/L (98-107); Estimated GFR 94; Globulin 3.6 g/dL (2.4-3.5); Glucose 306 mg/dL (80-115); Lipase 12 U/L (8-78); Protein, Total 7.2 g/dL (5.8-8.1); Sodium 137 mmol/L (136-145)
[2024-01-02 14:38] LABS: Troponin I Less than 0.010 ng/mL (< 0.028)
[2024-01-02 14:41] LABS: Bacteria/HPF 2+ HPF (None Seen); Yeast-Budding 1+ HPF (None Seen)
[2024-01-02 14:42] LABS: Calcium Oxalate Crystals 1+ HPF (None Seen)
[2024-01-02 14:43] LABS: Urine Culture Reflex Yes Yes
[2024-01-02] MEDS ORDERED: hydrALAZINE 20 MG/ML VIAL ONE (14:49)
[2024-01-02] MEDS ORDERED: Ondansetron PF 4 MG/2 ML Vial ONE (14:50)
== END 2024-01-02 17:08 | disposition home or self-care (01) ==
LOC: ERS 13:35
DX: I10 Essential (primary) hypertension (principal); N39.0 Urinary tract infection, site not specified; E11.65 Type 2 diabetes mellitus with hyperglycemia; J44.9 Chronic obstructive pulmonary disease, unspecified; B19.20 Unspecified viral hepatitis C without hepatic coma; E11.43 Type 2 diabetes mellitus with diabetic autonomic (poly)neuropathy; K31.84 Gastroparesis; Z79.82 Long term (current) use of aspirin
CPT/HCPCS: 71045; 80053; 81001; 82962; 83605; 83690; 84484; 85025; 87086; 93005; 94760; 96374; 96375; 99285; J0360; J2405; 36415; 36416

== ENCOUNTER 2024-07-28 21:51 | Observation (INO) | payer MEDICARE, OTHER ==
[2024-07-28] MEDS ORDERED: Aspirin Chewable 81 MG TAB ONE (22:48)
[2024-07-28] MEDS ORDERED: Ondansetron PF 4 MG/2 ML Vial ONE (23:18)
[2024-07-28 23:22] LABS: #Basophils Less than 0.03 10x3/uL (0.0-0.2); #Eosinophils Less than 0.03 10x3/uL (0.0-0.7); %Basophils 0.1 % (0.0-1.0); %Eosinophils 0.2 % (0.0-10.0); %Lymphocytes 11.7 % (21.0-51.0); %Monocytes 4.5 % (0.0-10.0); %Neutrophils 82.4 % (42.0-75.0); Hematocrit 45.6 % (36.0-47.0); Hemoglobin 16.1 g/dL (12.0-16.0); Mean Corpuscular HGB CONC 35.3 g/dL (32.0-36.0); Mean Corpuscular Hemoglobin 30.4 pg (27.0-31.0); Mean Platelet Volume 10.6 fL (7.4-10.4); Platelet Count 197 10x3/uL (130-400); RBC Distribution Width 11.9 % (11.5-14.5)
[2024-07-28 23:33] LABS: ALT (SGPT) 10 U/L (Less than 34); AST (SGOT) 24 U/L (11-34); Albumin 3.7 g/dL (3.1-4.5); Alkaline Phosphatase 231 U/L (40-110); Anion Gap 16 mmol/L (10-20); BUN (Urea Nitrogen) 15 mg/dL (9.8-20.1); Calc. Creatinine Clearance 0 mL/min (70-130); Calcium 8.9 mg/dL (7.8-10.44); Carbon Dioxide 21 mmol/L (23-31); Chloride 105 mmol/L (98-107); Estimated GFR 98; Glucose 221 mg/dL (80-115); Potassium 3.9 mmol/L (3.5-5.1); Protein, Total 7.7 g/dL (5.8-8.1); Sodium 138 mmol/L (136-145)
[2024-07-28 23:38] LABS: Troponin I 0.012 ng/mL (< 0.028)
[2024-07-29] MEDS ORDERED: Insulin Lispro 100 UNIT/ML 10 ML VIAL SC PRN (03:10)
[2024-07-29] MEDS ORDERED: Dextrose 5% in Water 1,000 ML IV PRN (03:10)
[2024-07-29] MEDS ORDERED: Dextrose 50% Abboject 50 ML SYRINGE SLOW IVP PRN (03:10)
[2024-07-29] MEDS ORDERED: Glucagon 1 MG/ML KIT IM PRN (03:10)
[2024-07-29] MEDS ORDERED: Nitroglycerin 0.4 MG TAB (25 Tab Bottle) SL PRN (03:13)
[2024-07-29] MEDS ORDERED: Ondansetron PF 4 MG/2 ML Vial ONE (03:18)
[2024-07-29 03:50] LABS: #Basophils Less than 0.03 10x3/uL (0.0-0.2); #Eosinophils Less than 0.03 10x3/uL (0.0-0.7); %Eosinophils 0.2 % (0.0-10.0); %Lymphocytes 17.6 % (21.0-51.0); %Monocytes 6.8 % (0.0-10.0); %Neutrophils 75.2 % (42.0-75.0); Hematocrit 41.4 % (36.0-47.0); Mean Corpuscular HGB CONC 33.8 g/dL (32.0-36.0); Mean Corpuscular Hemoglobin 30.1 pg (27.0-31.0); Mean Platelet Volume 10.7 fL (7.4-10.4); Platelet Count 191 10x3/uL (130-400); Red Blood Cell (RBC) Count 4.65 mill/uL (4.20-5.40)
[2024-07-29 04:02] LABS: Anion Gap 10 mmol/L (10-20); BUN (Urea Nitrogen) 16 mg/dL (9.8-20.1); Calc. Creatinine Clearance 0 mL/min (70-130); Calcium 8.4 mg/dL (7.8-10.44); Carbon Dioxide 24 mmol/L (23-31); Chloride 109 mmol/L (98-107); Estimated GFR 98; Glucose 178 mg/dL (80-115); Potassium 3.4 mmol/L (3.5-5.1); Sodium 140 mmol/L (136-145)
[2024-07-29] MEDS: Acetaminophen 325 MG TAB PO PRN (04:29)
[2024-07-29 04:34] VITALS: BMI 36.6
[2024-07-29 04:56] LABS: Troponin I Less than 0.010 ng/mL (< 0.028)
[2024-07-29 07:04] LABS: Troponin I Less than 0.010 ng/mL (< 0.028)
[2024-07-29] MEDS ORDERED: Electrolyte Replacement Protocol FS PRN (09:30)
[2024-07-29] MEDS: Aspirin Chewable 81 MG TAB PO SCH (09:37)
[2024-07-29] MEDS: NIFEdipine XL 60 MG ER.TAB PO SCH (09:38)
[2024-07-29] MEDS: Famotidine 20 MG TAB PO SCH (09:38)
[2024-07-29] MEDS: Hydrochlorothiazide 25 MG TAB PO SCH (09:38)
[2024-07-29] MEDS: Heparin 5,000 UNITS/ML VIAL SC SCH (09:39)
[2024-07-29] MEDS: Electrolyte Replacement Protocol 1 EACH FS ONE (09:40)
[2024-07-29] MEDS: Potassium Chloride 20 MEQ TAB PO SCH (10:03)
[2024-07-29 15:03] VITALS: BP 120/74; TEMP 98.4
[2024-07-29] MEDS: Ondansetron PF 4 MG/2 ML Vial IVP PRN (17:10)
[2024-07-29] MEDS ORDERED: rOPINIRole HCl 0.25 MG TAB PO SCH (21:00)
[2024-07-29] MEDS ORDERED: Atorvastatin Calcium 40 MG TAB PO SCH (21:00)
== END 2024-07-29 17:50 | disposition home or self-care (01) ==
LOC: ERS 21:51 → OBS 07-29 02:27
PROVIDERS: ADMIT Student in an Organized Health Care Education/Training Program; ATTEND Student in an Organized Health Care Education/Training Program
DX: R07.89 Other chest pain (principal); E66.01 Morbid (severe) obesity due to excess calories; J45.909 Unspecified asthma, uncomplicated; I10 Essential (primary) hypertension; E11.43 Type 2 diabetes mellitus with diabetic autonomic (poly)neuropathy; K31.84 Gastroparesis; F32.A Depression, unspecified; E87.5 Hyperkalemia; F41.9 Anxiety disorder, unspecified; Z98.51 Tubal ligation status; Z68.36 Body mass index [BMI] 36.0-36.9, adult; Z90.49 Acquired absence of other specified parts of digestive tract; Z98.890 Other specified postprocedural states; Z79.899 Other long term (current) drug therapy; Z79.82 Long term (current) use of aspirin
CPT/HCPCS: 71045; 80048; 80053; 82962; 83690; 84484 ×3; 85025 ×2; 87428; 93005; 96372; G0378 ×2; J1644; J2405 ×2; 36415; 36416; 96361; 96374; 96376